=== PATIENT | male | born 1950 | race Caucasian/White ===

== ENCOUNTER 2018-11-24 17:23 | Inpatient (IN) ==
--- NOTE | 2018-11-24 17:53 | EKG ---
[address] [address] Measurements Intervals [place] Rate: 76 P: 24 AR: 188 QRS: 4 QRSD: 89 T: 44 QT: 392 QTc: 423 Interpretive Statements SINUS RHYTHM No previous ECG available for comparison Electronically Signed On 11-25-18 15:23:11 MDT by Aaron Carlos [email or web address]
[2018-11-24 18:05] LABS: BASOPHILS # (AUTO) 0.02 10*3/UL; BASOPHILS % (AUTO) 0.4 % (0-1); EOSINOPHILS # (AUTO) 0.39 10*3/UL; EOSINOPHILS % (AUTO) 8.4 % (0-8); Hematocrit [HCT] 26.6 % (42.0-52.0); Hemoglobin [HGB] 8.1 g/dL (14.0-18.0); LYMPHOCYTES # (AUTO) 1.33 10*3/uL; MEAN CORPUSCULAR HEMOGLOBIN 33.2 PG (27-31); MEAN CORPUSCULAR HGB CONC 30.5 g/dL (33-37); MEAN PLATELET VOLUME 8.9 FL (7.4-12.2); MONOCYTES # (AUTO) 0.86 10*3/UL (0.3-0.8); MONOCYTES % (AUTO) 18.5 % (5-15); NEUTROPHILS # (AUTO) 2.04 10*3/UL; NEUTROPHILS % (AUTO) 43.8 % (50-80); RED BLOOD COUNT 2.44 10^6/uL (4.70-6.10)
[2018-11-24] MEDS ORDERED: FUROSEMIDE 10 MG/1 ML - 4 ML IVP ONE (18:24)
[2018-11-24 18:29] LABS: PLATELET MORPHOLOGY COMMENT NORMAL MORPHOLOGY (NORM); RBC MORPHOLOGY COMMENT SEE COMMENTS (NORM); WBC MORPHOLOGY COMMENT NORMAL MORPHOLOGY (NORM)
[2018-11-24] MEDS ORDERED: fentaNYL Inj 100 MCG/2 ML VIAL IVP ONE ×2 (18:35→20:07)
[2018-11-24] MEDS ORDERED: ONDANSETRON 4 MG/2 ML VIAL IVP ONE (18:35)
--- NOTE | 2018-11-24 18:51 | DI ---
AP CHEST X-RAY, 11/24/2018 5:27 PM : Clinical History: Shortness of breath. Edema. Previous Exam: None at this facility. Soft Tissues: No acute soft tissue abnormality. Bones: Normal. Heart: Upper limits of normal to mild cardiomegaly. No reversal of flow to the upper lobes. The right heart border is not dilated. Lungs: No infiltrates. Effusion(s): None. Mediastinum: Vascular pedicle width is increased and the azygos vein is dilated. This can be seen wit h right heart failure. Nodules: No pulmonary nodules. Readin. No acute infiltrate or effusion. 2. Increased vascular pedicle with an dilatation of the azygos vein. Although the right heart is not dilated, these findings still can be seen with right heart failure and this should be correlated wit h clinical findings.
--- NOTE | 2018-11-24 18:56 | DI ---
AP PELVIS, 11/24/2018 5:31 PM : Clinical History: Fall. Previous Exam: None at this facility. Soft Tissues: Normal. The patient is morbidly obese. This detracts from the overall quality and sever hu limits the diagnostic quality of the exam with respect to small or fine detail structures. Hip Joints: Status post bilateral hip replacement. The prosthetic device articulates normally. SI Joints: Bilateral sacroiliitis. Symphysis Pubis: Normal. Bones: Normal bony pelvis. No fractures noted. There is osteoporosis. Additional Findings: Vascular calcifications are present in the pelvis in a pattern typical of patien ts with diabetes. Readin. Normal AP pelvis exam. Osteoporosis. Status post bilateral hip replacements. 2. If symptoms persist at the affected site, then follow-up films in are recommended in 7-10 days.
--- NOTE | 2018-11-24 19:04 | DI ---
LEFT FEMUR EXAM., 11/24/2018 5:29 PM: Clinical History: Injury. The patient fell. Comparison Study: None at this facility. Views: AP and lateral. Soft Tissues: No soft tissue swelling. There is marked muscle atrophy. Effusion: No joint effusion present. Joints: Cartilaginous surfaces intact. Bones: Status post total left hip replacement. The metallic shank in the femur extends to the distal third of the femur. 3 cerclage wires are present. On the AP projection, there is a lucency just infer ior to the second cerclage wire with periosteal new bone formation. This probably represents an old o r subacute fracture. There is severe osteoporosis. No definite loosening of the prosthesis is appreci ated. Readin. Status post total left hip replacement. The prosthetic device does not appear to be loose. 2. Inferior to the second cerclage wire laterally is an oblique lucency that may represent a fractur e. There is periosteal new bone formation in this may represent a subacute or old fracture. 3. Severe osteoporosis. Severe muscular atrophy.
[2018-11-24 19:09] LABS: BILIRUBIN,URINE NEGATIVE (NEG); CLARITY,URINE TURBID (CLEAR); COLOR,URINE YELLOW (Y); GLUCOSE, URINE (UA) NEGATIVE (NEG); OCCULT BLOOD,URINE LARGE (NEG); PROTEIN,URINE 100 mg/dl (NEG)
[2018-11-24 19:15] LABS: BACTERIA,URINE FEW; RBC,URINE 15-20 /hpf; SQUAMOUS EPITHELIAL CELL,UR RARE; URINE SAMPLE TYPE CATH SPECIMEN; WBC,URINE >100
[2018-11-24] MEDS ORDERED: HYDROcodone-APAP 5 MG -325 MG TABLET PO ONE (22:51)
--- NOTE | 2018-11-24 23:02 | DI ---
EXAM: CT Neck Without Intravenous Contrast CLINICAL HISTORY: ITS.REASON fall, ?left femur FX Physician Notes: Tech Comments: TECHNIQUE: Axial computed tomography images of the neck without intravenous contrast. COMPARISON: Left femur radiographs on 11/24/2018. Pelvis radiographs on 11/24/2018. FINDINGS: Bones/joints: Left hip arthroplasty. 3 cerclage wires noted along the proximal and mid left femur. Old fracture deformity of the left femur. No definite acute displaced fracture identified, but evaluation is limited by osteopenia and femoral hardware. Osteopenia. No left knee joint effusion. Soft tissues: Sequela of prior surgery in the soft tissues lateral to the proximal left femur. Soft tissue edema in the mid and distal left femur. Vascular calcifications. Fatty atrophy of the muscles. Other: Decompressed sigmoid colon. Mild diverticulosis. Nonspecific bladder wall thickening. IMPRESSION: 1. No definite acute displaced fracture identified, but evaluation is limited by osteopenia and femoral hardware. 2. Old fracture deformity of the left femur. Left hip arthroplasty. 3. Soft tissue edema.
[2018-11-24] MEDS ORDERED: cefTRIAXone Inj 2 GM in Sodium Chloride 0.9% 100 ML IV ONE (23:28)
[2018-11-24] MEDS ORDERED: LIDOCAINE HCL 2 % 10 ML JELLY URO-JECT TOPICAL PRN (23:37)
--- NOTE | 2018-11-25 | PDOC ---
HPI - History of Present Illness Date of Service: 11/25/18 Time of Service: 00:30 Chief Complaint: Patient fell last Tuesday complaining from pain in the left leg History of Present Illness: This is a 68 years old male with medical history significant for history of seizure disorder, history of paroxysmal A. fib, history of previous DVT before, history of gout, history of hypertension, history of chronic renal disease, history of previous GI bleed and blood transfusion who reside at the skilled nursing and apparently fell last Tuesday he said he was trying to use the wheelchair and apparently it folded and he fell his left leg was hurting today he had some blood tests and his potassium was high and was sent to the ER. His main complaint is pain in his left leg but otherwise denying other symptoms there's no nausea or vomiting. He did mention that there was the some dysuria. Apparently was recently started on trimethoprim. No chest pain, no shortness of breath. He came into the ER potassium was still elevated he was given some Lasix there is question initially maybe a fracture of the left femur however a CT of the extremity showed no evidence of fracture. Past Medical History Medical History: 1. History of seizure disorder. 2. History of paroxysmal A. fib. 3. History of DVT in the past. 4. History of chronic kidney disease stage III. 5. Chronic pain syndrome. 6. History of C. difficile in the past. 7. History of hypertension. 8. History of gout. 9. History of IVC filter Surgical History: 1. History of right knee surgery. 2. History of appendectomy. 3. History of shoulder surgery Past Social History: Used to smoke, doesn't drink, currently reside at the skilled nursing, he said he used to live in [place] he had surgery of rotator cuff cough on the right and he came in to have the rehabilitation over seems like he notes more like a permanent residence for him. He said he is a walker to walk. Tobacco Use: Former Smoker In the Past 12 Months, Have Used or Abuse Any of the Following Substance: None Medication / Allergies Home Medications: Home Medications Medication Instructions Recorded Confirmed acetaminophen 325 mg tablet 650 mg PO Q6H PRN 06/23/18 11/24/18 divalproex 250 mg tablet,delayed 750 mg PO QDAY tab 06/23/18 11/24/18 release escitalopram 20 mg tablet 20 mg PO QDAY tab 06/23/18 11/24/18 famotidine 20 mg tablet 20 mg PO BID tab 06/23/18 11/24/18 finasteride 5 mg tablet 5 mg PO QDAY 06/23/18 11/24/18 hydrocodone 5 mg-acetaminophen 325 1 tab PO Q6H PRN 06/23/18 11/24/18 mg tablet lidocaine 5 % topical cream 1 applic TOPICAL TID PRN 06/23/18 11/24/18 metoprolol tartrate 25 mg tablet 25 mg PO BID 06/23/18 11/24/18 olanzapine 10 mg tablet 10 mg PO QHS tab 06/23/18 11/24/18 pantoprazole 40 mg tablet,delayed 40 mg PO QDAY 06/23/18 11/24/18 release polyethylene glycol 3350 17 17 g PO QDAY PRN g 06/23/18 11/24/18 gram/dose oral powder prednisone 5 mg tablet 2.5 mg PO QDAY 06/23/18 11/24/18 rivaroxaban 20 mg tablet 20 mg PO QDAY 06/23/18 11/24/18 sennosides 8.6 mg-docusate sodium 2 tab PO QHS 06/23/18 11/24/18 50 mg tablet febuxostat 40 mg tablet 40 mg PO QDAY 08/14/18 11/24/18 gabapentin 300 mg capsule 300 mg PO BID cap 08/14/18 11/24/18 tamsulosin 0.4 mg capsule 0.4 mg PO QDAY 08/14/18 11/24/18 benztropine 1 mg tablet 1 mg PO QHS tab 09/25/18 11/24/18 ferrous gluconate 324 mg (38 mg 324 mg PO QDAY tab 09/25/18 11/24/18 iron) tablet nystatin 100,000 unit/gram topical 1 applic TOPICAL BID PRN 09/25/18 11/24/18 ointment tissue resp fact-shark ash oil 1 ea ID TID PRN g 09/25/18 11/24/18 rectal ointment Allergies/Adverse Reactions: Allergies Allergy/AdvReac Type Severity Reaction Status Date / Time acetaminophen [From Tylox] Allergy Mild ITCHING Verified 11/24/18 18:00 Opioids - Morphine Analogues Allergy Mild ITCHING Verified 11/24/18 18:00 oxycodone [From Tylox] Allergy Mild ITCHING Verified 11/24/18 18:00 Sulfa (Sulfonamide Allergy Mild ITCHING Verified 11/24/18 18:00 Antibiotics) hyoscyamine Allergy ITCHING Verified 11/24/18 18:00 [From Levsin with Phenobarbital] phenobarbital Allergy ITCHING Verified 11/24/18 18:00 [From Levsin with Phenobarbital] Phenytoin 1 Allergy Unknown ITCHING Uncoded 11/24/18 18:00 Review of Systems - Review of Systems All Systems: Reviewed & No Additional Complaints Except as Stated Exam - Vitals Vital Signs: Vital Signs Temperature 98 F Temperature Source Oral Pulse Rate [Pulse Oximeter] 76 Respiratory Rate 18 Blood Pressure [Left Arm] 139/66 Pulse Ox 94 Oxygen Delivery Method Room Air Height 6 ft Weight 253 lb - General General Appearance: No Acute Distress, Obese - Head Head Exam: Normal Inspection - Eye Eye Exam: POSITIVE: Normal Appearance - Neck Neck Exam: Normal Inspection - Respiratory Respiratory Exam: POSITIVE: Clear to Auscultation - Bilaterally - Cardiovascular Cardiovascular Exam: POSITIVE: RRR - GI/Abdominal GI/Abdominal Exam: POSITIVE: Normal Bowel Sounds, Non Tender, Non Distended, Soft, No Organomegaly - Rectal Rectal Exam: POSITIVE: Deferred - External Exam: POSITIVE: Deferred - Extremities Additional Extremities Exam Details: bilateral leg edema noted with oozing of fluid. also bruise in the left leg at the back of it - Neurological Neurological Exam: POSITIVE: Alert, Oriented x 3, CN II-XII Intact, No Facial Droop, Speech Intact / Clear - Psychiatric Psychiatric Exam: POSITIVE: Normal Affect Results - Labs CBC and BMP: 11/24/18 18:00 11/25/18 01:15 - EKG Data -: EKG Interpreted by Me Rate: Normal EKG Shows Normal: Sinus Rhythm - EKG Data EKG Interpretation: Other (EKG showed normal sinus rhythm with incomplete RBBB) - Imaging Status: Report Reviewed by Me (CT lower extremity 1. No definite acute displaced fracture identified, but evaluation is limited by osteopenia and femoral hardware. 2. Old fracture deformity of the left femur. Left hip arthroplasty. 3. Soft tissue edema. Chest Xray 1. No acute infiltrate or effusion. 2. Increased vascular pedicle with an dilatation of the azygos vein. Although the right heart is not dilated, these findings still can be seen with right heart failure and this should be correlated with clinical findings.) Assessment and Plan - Patient Problems (1) UTI (urinary tract infection) Current Visit: Yes Status: Acute Comment: He was started on Rocephin will continue the Rocephin and wait culture result. Code(s): N39.0 - Urinary tract infection, site not specified (2) Hyperkalemia Current Visit: Yes Status: Acute Comment: I think it's probably secondary to the trimethoprim so we'll discontinue that, he was given Lasix will continue Lasix we'll check his potassium again. There is no EKG changes present. Code(s): E87.5 - Hyperkalemia (3) Bilateral leg edema Current Visit: Yes Status: Acute Comment: Edema noted in both legs the Lasix I think will help in addition to lowering potassium will help with the swelling in his legs. He is not on diuretic according to him. Code(s): R60.0 - Localized edema (4) Paroxysmal A-fib Current Visit: Yes Status: Acute Comment: he Is on metoprolol and Xarelto continue Code(s): I48.0 - Paroxysmal atrial fibrillation (5) History of seizure disorder Current Visit: Yes Status: Acute Comment: Continue same medications Code(s): Z86.69 - Personal history of other diseases of the nervous system and sense organs (6) Anemia Current Visit: Yes Status: Acute Comment: He has a history of anemia before and he said he had blood transfusion last year, part of the anemia is secondary to chronic kidney disease in addition there is some bruising noted to the leg will recheck his counts then consider blood transfusion. He did say that he feels weak. Code(s): D64.9 - Anemia, unspecified (7) History of depression Current Visit: Yes Status: Acute Comment: Same medication Code(s): Z86.59 - Personal history of other mental and behavioral disorders
[2018-11-25] MEDS ORDERED: LIDOCAINE HCL 2 % 10 ML JELLY URO-JECT TOPICAL PRN ×2 (00:31→10:01)
[2018-11-25] MEDS ORDERED: HYDROcodone-APAP 5 MG -325 MG TABLET PO PRN (00:38)
[2018-11-25] MEDS ORDERED: LIDOCAINE TOPICAL PRN (00:38)
[2018-11-25] MEDS ORDERED: POLYETHYLENE GLYCOL 3350 238 GM POWDER PO PRN (00:38)
[2018-11-25] MEDS ORDERED: CALCIUM CARBONATE 500 MG (TUMS) CHEWABLE TABLET PO PRN (00:52)
[2018-11-25] MEDS ORDERED: LIDOCAINE W/ SODIUM BICARB 0.5 ML SYR SUBD PRN (00:52)
[2018-11-25] MEDS ORDERED: ONDANSETRON 4 MG/2 ML VIAL IVP PRN (00:52)
[2018-11-25] MEDS ORDERED: ACETAMINOPHEN 325 MG TABLET PO PRN (00:52)
[2018-11-25] MEDS: DIVALPROEX SODIUM 250 MG TABLET PO SCH ×2 (01:10→09:00)
[2018-11-25] MEDS: fentaNYL Inj 100 MCG/2 ML VIAL IVP PRN ×2 (01:11→05:10)
[2018-11-25] MEDS: BENZTROPINE 1 MG TABLET PO SCH ×2 (01:11→20:47)
[2018-11-25] MEDS: Senna/Docusate Tab 1 TAB TAB PO SCH ×2 (01:43→20:47)
[2018-11-25] MEDS: OLANZapine Tab 5 MG TAB PO SCH ×2 (01:43→20:47)
[2018-11-25 01:48] LABS: BUN/CREATININE RATIO 20.86 (6-20)
--- NOTE | 2018-11-25 05:57 | PDOC ---
General Adult HPI - General Chief Complaint: General Medical Stated Complaint: BRUISING TO LEFT LEG Date Seen by Provider: 11/24/18 Time Seen by Provider: 17:55 Source: POSITIVE: Patient, EMS, shelter records Exam Limitations: POSITIVE: No limitations Nurse's Notes Reviewed & Considered: Yes EMS Report Reviewed & Considered: Verbal - History of Present Illness Initial Comment: The patient is a 68-year-old male who presents to the emergency department by ambulance from the [facility] with concern about increased bruising to his left leg as well as elevated potassium. The patient has a history of multiple medical problems including congestive heart failure, history of atrial fibrillation and history of blood clots. He is currently anticoagulated with Xarelto. He states that approximately a week ago he got twisted up in his wheelchair and fell. He did injure his left leg. He reports continued pain in the left hip and leg region. Nursing staff at the [facility] noticed that he had some increased bruising extending down towards the back of his left knee. In addition the patient had labs drawn today which showed an elevated potassium 6. The patient was subsequently transferred here to the emergency department for further evaluation. The patient denies any current chest pain, numbness or weakness in his arms or legs. He does have significant swelling to both lower legs which has apparently been worse over the past 4 days. He reports they have been doing compression wraps to try to help with the swelling. Have you received a tetanus shot in the past 10 years?: Unknown - Patient Home Medications Home Medications: Home Medications acetaminophen 325 mg tablet 650 mg PO Q6H PRN 06/23/18 divalproex 250 mg tablet,delayed release 750 mg PO QDAY tab 06/23/18 escitalopram 20 mg tablet 20 mg PO QDAY tab 06/23/18 famotidine 20 mg tablet 20 mg PO BID tab 06/23/18 finasteride 5 mg tablet 5 mg PO QDAY 06/23/18 hydrocodone 5 mg-acetaminophen 325 mg tablet 1 tab PO Q6H PRN 06/23/18 lidocaine 5 % topical cream 1 applic TOPICAL TID PRN 06/23/18 metoprolol tartrate 25 mg tablet 25 mg PO BID 06/23/18 olanzapine 10 mg tablet 10 mg PO QHS tab 06/23/18 pantoprazole 40 mg tablet,delayed release 40 mg PO QDAY 06/23/18 polyethylene glycol 3350 17 gram/dose oral powder 17 g PO QDAY PRN g 06/23/18 prednisone 5 mg tablet 2.5 mg PO QDAY 06/23/18 rivaroxaban 20 mg tablet 20 mg PO QDAY 06/23/18 sennosides 8.6 mg-docusate sodium 50 mg tablet 2 tab PO QHS 06/23/18 febuxostat 40 mg tablet 40 mg PO QDAY 08/14/18 gabapentin 300 mg capsule 300 mg PO BID cap 08/14/18 tamsulosin 0.4 mg capsule 0.4 mg PO QDAY 08/14/18 benztropine 1 mg tablet 1 mg PO QHS tab 09/25/18 ferrous gluconate 324 mg (38 mg iron) tablet 324 mg PO QDAY tab 09/25/18 nystatin 100,000 unit/gram topical ointment 1 applic TOPICAL BID PRN 09/25/18 tissue resp fact-shark ash oil rectal ointment 1 ea NM TID PRN g 09/25/18 - Patient Allergies Allergies/Adverse Reactions: Allergies Allergy/AdvReac Type Severity Reaction Status Date / Time acetaminophen [From Tylox] Allergy Mild ITCHING Verified 11/24/18 18:00 Opioids - Morphine Analogues Allergy Mild ITCHING Verified 11/24/18 18:00 oxycodone [From Tylox] Allergy Mild ITCHING Verified 11/24/18 18:00 Sulfa (Sulfonamide Allergy Mild ITCHING Verified 11/24/18 18:00 Antibiotics) hyoscyamine Allergy ITCHING Verified 11/24/18 18:00 [From Levsin with Phenobarbital] phenobarbital Allergy ITCHING Verified 11/24/18 18:00 [From Levsin with Phenobarbital] Phenytoin 1 Allergy Unknown ITCHING Uncoded 11/24/18 18:00 Past Medical History - heen HEENT History: Denies History Cardiovascular History: Hypertension, CHF, Arrhythmia, DVTs Respiratory History: Shortness of Breath Gastrointestinal History: Denies History Genitourinary History: Recurrent UTI Endocrine History: Type 2 Diabetes (oral) Musculoskeletal History: Muscle Weakness, Limited ROM Neurological History: Seizures Blood Disorders: Anemia Additional Blood Disorders History: HX OF BLOOD CLOTS Psychiatric History: Depression History of Sexually Transmitted Diseases: No Male Reproductive History: Denies History Cancer History: Denies History In Past Year Been Physically Harmed or Verbally Threatened: No History of MDRO: No History of Other Communicable Diseases: No Tobacco Use: Former Smoker In the Past 12 Months, Have Used or Abuse Any Substance: None Previous Surgical History: Yes Type / Date of Surgery: RIGHT ROTATOR CUFF, BILATERAL HIP Significant Family History: No pertinent family hx Past Medical History Reviewed: Reviewed - No Changes ROS - Limitations ROS Limitations: No Limitations Constitution: DENIES: Fever Cardiovascular: DENIES: Chest Pain Respiratory: REPORTS: Denies Resp Symptoms Neurological: DENIES: Numbness, Weakness Gastrointestinal: REPORTS: Denies GI Symptoms Musculoskeletal: REPORTS: Lower Extremity Swelling Genitourinary: REPORTS: Other (Patient has intermittent incontinence and did have a urinary tract infection a month ago) Eyes: REPORTS: Denies Symptoms ENT: REPORTS: Denies Symptoms General Adult Exam - General Appearance General Appearance: POSITIVE: Alert, Cooperative, No Acute Distress - HEENT HEENT: POSITIVE: Head Inspection Nml, Eyes Inspection Nml, Ears Inspection Nml, Pharynx Inspect. Nml, Dry Mucous Membranes - Neck Neck: POSITIVE: Normal Inspection. NEGATIVE: Lymphadenopathy - Respiratory Respiratory: POSITIVE: No Respiratory Distress, Breath Sounds Normal (Diminished breath sounds bilaterally) - Cardiovascular Cardiovascular: POSITIVE: Regular Rate & Rhythm, No Murmur - Abdomen Abdomen: Soft: (All Quadrants), Denies Tenderness: (All Quadrants) - Skin Skin: POSITIVE: Normal Color, No Rash - Extremities Additional Extremities Details: The patient does have marked edema in the lower extremities bilaterally, he does have an area of bruising that extends from the posterior aspect of the mid thigh on the left down to the level of the knee. He does have limited range of motion of the left leg secondary to pain in the hip region. 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 X-ray of the pelvis shows no visible fractures per radiologist. X-ray of the left femur shows hardware from previous surgery, he does have a translucency adjacent to the hardware of unknown significance and acuity per radiologist. Subsequent CT of the left femur showed no visible fracture only chronic findings per radiologist. Lab Results Reviewed by Me: Yes Lab Results:: Laboratory Results 11/24/18 11/24/18 11/24/18 18:00 18:00 18:00 WBC 4.66 L RBC 2.44 L Hgb 8.1 L Hct 26.6 L MCV 109.0 H MCH 33.2 H MCHC 30.5 L RDW Std Deviation 60.3 H RDW Coeff of [place] 15.9 H Plt Count 225 MPV 8.9 Immature Gran % (Auto) 0.4 Neut % (Auto) 43.8 L Lymph % (Auto) 28.5 [place] % (Auto) 18.5 H Eos % (Auto) 8.4 H Baso % (Auto) 0.4 Immature Gran # (Auto) 0.02 Neut # (Auto) 2.04 Lymph # (Auto) 1.33 [place] # (Auto) 0.86 H Eos # (Auto) 0.39 Baso # (Auto) 0.02 WBC Morphology Comment Normal morphology Plt Morphology Comment Normal morphology RBC Morph Comment See comments PT INR APTT D-Dimer Potassium Magnesium 2.0 Total Creatine Kinase 58 Troponin I < 0.012 C-Reactive Protein 3.1 H NT-Pro-B Natriuret Pep 843 H Ur Collection Type Urine Color Urine Clarity Urine pH Ur Specific [place] Urine Protein Urine Glucose (UA) Urine Ketones Urine Occult Blood Urine Nitrate Urine Bilirubin Urine Urobilinogen Ur Leukocyte Esterase Urine RBC Urine WBC Ur Squamous Epith Cells Ur Renal Epithelial Cell Urine Crystals Urine Bacteria Urine Casts Urine Mucus Urine Trichomonas Urine Yeast Ur Culture Indicated? 11/24/18 11/24/18 11/24/18 18:00 18:00 18:00 WBC RBC Hgb Hct MCV MCH MCHC RDW Std Deviation RDW Coeff of [place] Plt Count MPV Immature Gran % (Auto) Neut % (Auto) Lymph % (Auto) [place] % (Auto) Eos % (Auto) Baso % (Auto) Immature Gran # (Auto) Neut # (Auto) Lymph # (Auto) [place] # (Auto) Eos # (Auto) Baso # (Auto) WBC Morphology Comment Plt Morphology Comment RBC Morph Comment PT 15.0 H INR 1.30 APTT 30.7 D-Dimer 416 Potassium 6.2 H* Magnesium Total Creatine Kinase Troponin I C-Reactive Protein NT-Pro-B Natriuret Pep Ur Collection Type Urine Color Urine Clarity Urine pH Ur Specific [place] Urine Protein Urine Glucose (UA) Urine Ketones Urine Occult Blood Urine Nitrate Urine Bilirubin Urine Urobilinogen Ur Leukocyte Esterase Urine RBC Urine WBC Ur Squamous Epith Cells Ur Renal Epithelial Cell Urine Crystals Urine Bacteria Urine Casts Urine Mucus Urine Trichomonas Urine Yeast Ur Culture Indicated? 11/24/18 19:00 WBC RBC Hgb Hct MCV MCH MCHC RDW Std Deviation RDW Coeff of [place] Plt Count MPV Immature Gran % (Auto) Neut % (Auto) Lymph % (Auto) [place] % (Auto) Eos % (Auto) Baso % (Auto) Immature Gran # (Auto) Neut # (Auto) Lymph # (Auto) [place] # (Auto) Eos # (Auto) Baso # (Auto) WBC Morphology Comment Plt Morphology Comment RBC Morph Comment PT INR APTT D-Dimer Potassium Magnesium Total Creatine Kinase Troponin I C-Reactive Protein NT-Pro-B Natriuret Pep Ur Collection Type Cath specimen Urine Color Yellow Urine Clarity Turbid A Urine pH 7.0 Ur Specific [place] 1.015 Urine Protein 100 A Urine Glucose (UA) Negative Urine Ketones Negative Urine Occult Blood Large H Urine Nitrate Negative Urine Bilirubin Negative Urine Urobilinogen 1.0 Ur Leukocyte Esterase Large Urine RBC 15-20 Urine WBC >100 H Ur Squamous Epith Cells Rare Ur Renal Epithelial Cell None Urine Crystals None Urine Bacteria Few Urine Casts None Urine Mucus None Urine Trichomonas None Urine Yeast None Ur Culture Indicated? Culture set CBC and BMP: 11/24/18 18:00 11/25/18 01:15 EKG Interpretation:: POSITIVE: Normal Sinus Rhythm, Normal Rate, Normal QRS, Normal ST/T - Patient's Progress MDM / ED Course: On arrival, EKG was performed which showed normal sinus rhythm at this time with no acute ST segment changes or T-wave changes. An IV was established. Blood work from earlier today was reviewed which does show a creatinine of 2.2 and potassium of 6.0. His baseline creatinine has been between 2 and 2.2 recently. A repeat potassium was 6.2. Other blood work reveals a white count of 4 and a hemoglobin of 8.1. He is normally chronically anemic although he has had a drop in his hemoglobin from the nines down to 8.1. His troponin is normal, BNP is elevated at 843. Urinalysis shows greater than 100 WBCs and culture is set. Chest x-ray shows right-sided heart failure with no other acute findings per radiologist. X-ray of the pelvis shows no visible fracture. X-ray of the left femur showed hardware from previous surgery and possible translucency adjacent to the hardware of unknown acuity per radiologist. The patient did receive Lasix 40 mg IV and did have a fair amount of diuresis here in the emergency department. These findings were discussed with the patient as well as Dr. Deshpande. Because of the concern about possible fracture or translucency on the femur x-ray, Dr. Sanz was contacted. He recommended CT scan of the lower extremity. This was completed in eventually showed that there was no obvious fracture in the left femur. Dr. Sanz recommended expectant management. Currently the patient is anemic with a hemoglobin of 8.1, he has elevated potas sium with history of chronic renal insufficiency and marked edema in his legs. He also has evidence of a urinary tract infection. The patient will be admitted to the hospitalist service for further care. A Purcell catheter was placed and he was started on Rocephin 2 g IV for treatment of the urinary tract infection. - Consult Counseled: POSITIVE: Patient, RE: Lab Results, RE: Radiology Results, RE: DX Patient Care Time - Estimated PCT Patient Care Time (In Minutes): 55 Vital Signs - VS Reviewed Vital Signs Reviewed: Yes Discharge Clinical Impression: UTI (urinary tract infection), Hyperkalemia, Bilateral leg edema, Anemia, Traumatic ecchymosis of left lower leg Discharge Disposition: Admit to Inpatient Condition: Fair Date Decision to Admit to Inpatient: 11/24/18 Time Decision to Admit to Inpatient: 23:15
[2018-11-25] MEDS: PANTOPRAZOLE 40 MG TABLET PO SCH (06:57)
[2018-11-25] MEDS: FUROSEMIDE 10 MG/1 ML - 4 ML IVP SCH ×2 (06:57→14:00)
[2018-11-25 08:53] LABS: BASOPHILS # (AUTO) 0.02 10*3/UL; BASOPHILS % (AUTO) 0.4 % (0-1); EOSINOPHILS # (AUTO) 0.39 10*3/UL; EOSINOPHILS % (AUTO) 7.2 % (0-8); Hematocrit [HCT] 27.3 % (42.0-52.0); Hemoglobin [HGB] 8.2 g/dL (14.0-18.0); LYMPHOCYTES # (AUTO) 1.46 10*3/uL; MEAN CORPUSCULAR HEMOGLOBIN 33.1 PG (27-31); MEAN CORPUSCULAR VOLUME 110.1 FL (80-90); MEAN PLATELET VOLUME 8.8 FL (7.4-12.2); MONOCYTES % (AUTO) 16.6 % (5-15); NEUTROPHILS # (AUTO) 2.63 10*3/UL; NEUTROPHILS % (AUTO) 48.5 % (50-80); RED BLOOD COUNT 2.48 10^6/uL (4.70-6.10)
[2018-11-25 08:54] LABS: PLATELET MORPHOLOGY COMMENT NORMAL MORPHOLOGY (NORM); RBC MORPHOLOGY COMMENT NORMAL MORPHOLOGY (NORM); WBC MORPHOLOGY COMMENT NORMAL MORPHOLOGY (NORM)
[2018-11-25] MEDS: GABAPENTIN 300 MG CAPSULE PO SCH ×2 (09:00→20:47)
[2018-11-25] MEDS: FAMOTIDINE 20 MG TABLET PO SCH ×2 (09:00→20:47)
[2018-11-25] MEDS: FINASTERIDE 5 MG TABLET PO SCH (09:00)
[2018-11-25] MEDS: Metoprolol TARTRATE Tab 25 MG TAB PO SCH ×2 (09:00→20:47)
[2018-11-25] MEDS: TAMSULOSIN 0.4 MG CAPSULE PO SCH (09:03)
[2018-11-25] MEDS ORDERED: SODIUM POLYSTYRENE SULFONATE 15 GM/60 ML PO ONE (10:03)
--- NOTE | 2018-11-25 14:27 | PDOC(PROG) ---
Interval History: Patient received fentanyl last night apparently this was a little too much for him he is aware arousable but sleepy. We are obtaining good urine output we will recheck labs this afternoon for his potassium levels. Objective : Data - Labs CBC and BMP: 11/25/18 08:35 11/25/18 01:15 Objective : Exam - General General Appearance: Cooperative - Respiratory Respiratory Exam: Clear to Auscultation - Bilaterally, Breathing Non Labored, Normal To Percussion, Normal to Percussion and Palpation - Cardiovascular Cardiovascular Exam: RRR, No Murmur, No Clicks, No Gallops, No Rubs, PMI Non- Displaced - GI/Abdominal GI/Abdominal Exam: Normal Bowel Sounds, Non Tender, Non Distended, Soft, No Mas ses, No Hepatomegaly, No Splenomegaly, No Organomegaly Assessment and Plan - Patient Problems (1) UTI (urinary tract infection) Current Visit: Yes Status: Acute Comment: Continue IV antibiotics Code(s): N39.0 - Urinary tract infection, site not specified (2) Hyperkalemia Current Visit: Yes Status: Acute Comment: Lasix and Kayexalate was given Code(s): E87.5 - Hyperkalemia (3) Bilateral leg edema Current Visit: Yes Status: Acute Comment: Continue Lasix Code(s): R60.0 - Localized edema (4) Paroxysmal A-fib Current Visit: Yes Status: Acute Comment: On the anticoagulation Code(s): I48.0 - Paroxysmal atrial fibrillation (5) History of seizure disorder Current Visit: Yes Status: Acute Code(s): Z86.69 - Personal history of other diseases of the nervous system and sense organs (6) Anemia Current Visit: Yes Status: Acute Comment: No family members around to discuss maybe stopping the anticoagulation Code(s): D64.9 - Anemia, unspecified (7) History of depression Current Visit: Yes Status: Acute Code(s): Z86.59 - Personal history of other mental and behavioral disorders
[2018-11-25] MEDS: HYDROcodone-APAP 5 MG -325 MG TABLET PO PRN ×3 (15:09→23:18)
[2018-11-25] MEDS ORDERED: Rivaroxaban Tab 10 MG TAB PO SCH (17:00)
[2018-11-25 20:03] LABS: BUN/CREATININE RATIO 20.9 (6-20); SERUM ALBUMIN 3.4 g/dL (3.5-4.8)
[2018-11-25] MEDS ORDERED: cefTRIAXone Inj 2 GM in Sodium Chloride 0.9% 100 ML IV SCH (23:00)
[2018-11-26] MEDS: PANTOPRAZOLE 40 MG TABLET PO SCH (07:05)
[2018-11-26] MEDS: FUROSEMIDE 10 MG/1 ML - 4 ML IVP SCH (07:05)
[2018-11-26 09:00] LABS: BUN/CREATININE RATIO 20.95 (6-20); SERUM ALBUMIN 3.4 g/dL (3.5-4.8)
[2018-11-26] MEDS ORDERED: FEBUXOSTAT 40 MG PO SCH (09:00)
[2018-11-26] MEDS ORDERED: GABAPENTIN 100 MG CAPSULE PO SCH (09:00)
[2018-11-26] MEDS ORDERED: ESCITALOPRAM 10 MG TABLET PO SCH (09:00)
[2018-11-26 09:21] LABS: BASOPHILS # (AUTO) 0.02 10*3/UL; BASOPHILS % (AUTO) 0.3 % (0-1); EOSINOPHILS % (AUTO) 8.1 % (0-8); Hemoglobin [HGB] 9.1 g/dL (14.0-18.0); LYMPHOCYTES # (AUTO) 1.46 10*3/uL; MEAN CORPUSCULAR HEMOGLOBIN 33.3 PG (27-31); MEAN CORPUSCULAR HGB CONC 30.3 g/dL (33-37); MEAN CORPUSCULAR VOLUME 109.9 FL (80-90); MEAN PLATELET VOLUME 8.6 FL (7.4-12.2); MONOCYTES # (AUTO) 0.85 10*3/UL (0.3-0.8); MONOCYTES % (AUTO) 11.4 % (5-15); NEUTROPHILS # (AUTO) 4.49 10*3/UL; NEUTROPHILS % (AUTO) 60.3 % (50-80); RED BLOOD COUNT 2.73 10^6/uL (4.70-6.10)
[2018-11-26 09:22] LABS: PLATELET MORPHOLOGY COMMENT NORMAL MORPHOLOGY (NORM); RBC MORPHOLOGY COMMENT NORMAL MORPHOLOGY (NORM); WBC MORPHOLOGY COMMENT NORMAL MORPHOLOGY (NORM)
[2018-11-26] MEDS: predniSONE 5 MG TABLET PO SCH ×2 (09:26→09:53)
[2018-11-26] MEDS: DIVALPROEX SODIUM 250 MG TABLET PO SCH (09:26)
[2018-11-26] MEDS: HYDROcodone-APAP 5 MG -325 MG TABLET PO PRN (09:28)
[2018-11-26] MEDS: FINASTERIDE 5 MG TABLET PO SCH (09:29)
[2018-11-26] MEDS: Metoprolol TARTRATE Tab 25 MG TAB PO SCH (09:29)
[2018-11-26] MEDS: TAMSULOSIN 0.4 MG CAPSULE PO SCH (09:29)
[2018-11-26] MEDS: FAMOTIDINE 20 MG TABLET PO SCH (09:29)
[2018-11-26] MEDS ORDERED: Amoxicill/Clav 875/125mg Tab 1 TAB TAB PO SCH (10:15)
--- NOTE | 2018-11-26 10:51 | DCSUMMARY ---
Hospitalization Summary Hospital Course: Final Discharge Diagnosis: Current Visit Problems Problem Status Onset Code UTI (urinary tract infection) Acute N39.0 Hyperkalemia Acute E87.5 Bilateral leg edema Acute R60.0 Paroxysmal A-fib Acute I48.0 History of seizure disorder Acute Z86.69 Anemia Acute D64.9 History of depression Acute Z86.59 Traumatic ecchymosis of left lower leg Acute S80.12XA Diagnostic Data, Laboratory Data, and Procedures of Signifigance: CBC and BMP 11/26/18 09:10 11/26/18 08:30 History and Physical pertinent to Admission: Past Medical History Medical History: 1. History of seizure disorder. 2. History of paroxysmal A. fib. 3. History of DVT in the past. 4. History of chronic kidney disease stage III. 5. Chronic pain syndrome. 6. History of C. difficile in the past. 7. History of hypertension. 8. History of gout. 9. History of IVC filter Surgical History: 1. History of right knee surgery. 2. History of appendectomy. 3. History of shoulder surgery Past Social History: Used to smoke, doesn't drink, currently reside at the [facility], he said he used to live in [place] he had surgery of rotator cuff cough on the right and he came in to have the rehabilitation over seems like he notes more like a permanent residence for him. He said he is a walker to walk. Tobacco Use: Former Smoker Course of Hospitalization: Is a very nice 68-year-old gentleman with past medical history significant for paroxysmal A. fib, most likely congestive heart failure, hypertension, chronic renal disease and history of previous GI bleeds and is a resident of the [facility] apparently fell last Tuesday he was hurting today was sent to the ER. CT scan shows no fracture but he was found to have hyperkalemia and some fluid overload. He was admitted to the hospital treated for UTI with Rocephin 2 g daily. He was also diuresed with Lasix IV about 5-1/2 L. And his hyperkalemia was treated to back down to normal values to 5.1 most likely his hyperkalemia was due to Bactrim for which she was given for his UTI. Patient is in stable condition at present point he feels much better has no complaints. I did add Lasix 20 mg by mouth twice a day to his regimen. I wanted to take the Purcell out but the patient explicitly requested to leave it in at least for another 2 or 3 days and then to take it out since he is very incontinent and does not like to lay in his urine. I said that was fine since it was his request. He will be treated with Augmentin for 3 more days for his UTI as well. He has chronic renal failure. This is mildly improved since in the hospital. We will give report to his primary care physician and may be getting an echo as an outpati ent. On the date of discharge, the patient was examined: Gen.: [No acute distress, alert, nontoxic] Heart: [Regular rate and rhythm, no murmurs, clicks, gallops, or rubs] Lungs: [Clear to auscultation bilaterally, breathing is nonlabored] Abdomen/GI: [Normal tones on auscultation, soft, nontender, nondistended] Musculoskeletal/extremities: [No clubbing, cyanosis, or edema] Vitals reviewed and are listed below Vital Signs (24 hrs) 11/25/18 11:53 11/25/18 15:00 11/25/18 16:20 Temperature 99.8 F H 98.9 F Pulse Rate 75 Pulse Rate [Pulse Oximeter] 78 88 Respiratory Rate 20 20 Blood Pressure [Left Arm] 113/47 120/50 Blood Pressure [Right Arm] Blood Pressure [Right Radial Artery] Pulse Ox 94 94 11/25/18 19:00 11/25/18 19:03 11/25/18 23:00 Temperature 98.6 F Pulse Rate 80 71 Pulse Rate [Pulse Oximeter] Respiratory Rate 24 Blood Pressure [Left Arm] Blood Pressure [Right Arm] 104/48 Blood Pressure [Right Radial Artery] Pulse Ox 93 11/26/18 00:13 11/26/18 03:00 11/26/18 04:53 Temperature 98.7 F 98.4 F Pulse Rate 67 Pulse Rate [Pulse Oximeter] 78 80 Respiratory Rate 20 20 Blood Pressure [Left Arm] 110/59 Blood Pressure [Right Arm] 151/63 Blood Pressure [Right Radial Artery] Pulse Ox 95 97 11/26/18 06:33 11/26/18 07:00 11/26/18 07:20 Temperature 97.3 F 97.3 F Pulse Rate 68 Pulse Rate [Pulse Oximeter] 75 75 Respiratory Rate 22 22 Blood Pressure [Left Arm] 110/59 126/82 Blood Pressure [Right Arm] 151/63 Blood Pressure [Right Radial Artery] 129/38 129/38 Pulse Ox 93 93 Assessment and Plan: 1. As per discharge assessments above 2. Disposition: [facility] 3. Condition on discharge, stable and improved. 4. Diet: regular diet 5. Activities: resume normal activities 6. Follow-Up: 1. [PCP] 2. 7. Medications at the Time of Discharge: Home Medications Medication Instructions Recorded Confirmed acetaminophen 325 mg tablet 650 mg PO Q6H PRN 06/23/18 11/24/18 divalproex 250 mg tablet,delayed 750 mg PO QDAY tab 06/23/18 11/24/18 release escitalopram 20 mg tablet 20 mg PO QDAY tab 06/23/18 11/24/18 famotidine 20 mg tablet 20 mg PO BID tab 06/23/18 11/24/18 finasteride 5 mg tablet 5 mg PO QDAY 06/23/18 11/24/18 hydrocodone 5 mg-acetaminophen 325 1 tab PO Q6H PRN 06/23/18 11/24/18 mg tablet lidocaine 5 % topical cream 1 applic TOPICAL TID PRN 06/23/18 11/24/18 metoprolol tartrate 25 mg tablet 25 mg PO BID 06/23/18 11/24/18 olanzapine 10 mg tablet 10 mg PO QHS tab 06/23/18 11/24/18 pantoprazole 40 mg tablet,delayed 40 mg PO QDAY 06/23/18 11/24/18 release polyethylene glycol 3350 17 17 g PO QDAY PRN g 06/23/18 11/24/18 gram/dose oral powder prednisone 5 mg tablet 2.5 mg PO QDAY 06/23/18 11/24/18 rivaroxaban 20 mg tablet 20 mg PO QDAY 06/23/18 11/24/18 sennosides 8.6 mg-docusate sodium 2 tab PO QHS 06/23/18 11/24/18 50 mg tablet febuxostat 40 mg tablet 40 mg PO QDAY 08/14/18 11/24/18 gabapentin 300 mg capsule 300 mg PO BID cap 08/14/18 11/24/18 tamsulosin 0.4 mg capsule 0.4 mg PO QDAY 08/14/18 11/24/18 benztropine 1 mg tablet 1 mg PO QHS tab 09/25/18 11/24/18 ferrous gluconate 324 mg (38 mg 324 mg PO QDAY tab 09/25/18 11/24/18 iron) tablet nystatin 100,000 unit/gram topical 1 applic TOPICAL BID PRN 09/25/18 11/24/18 ointment tissue resp fact-shark ash oil 1 ea [place] TID PRN g 09/25/18 11/24/18 rectal ointment Amoxicill/Clav 875/125mg 1 tab PO BID tab 11/26/18 [Augmentin 875/125mg] Furosemide [Lasix] 20 mg PO BID #30 tab 11/26/18 8. Time, care, counseling and coordination of care for this discharge is greater than 30 minutes. Exam - Vitals Vital Signs: Vital Signs Temperature 97.3 F Temperature Source Temporal Artery Scan Pulse Rate [Pulse Oximeter] 75 Pulse Rate 68 Respiratory Rate 22 Blood Pressure [Right Radial 129/38 Artery] Blood Pressure [Right Arm] 151/63 Blood Pressure [Left Arm] 126/82 Blood Pressure 114/51 Pulse Ox 93 Oxygen Flow Rate 2 Oxygen Delivery Method Room Air Height 6 ft Weight 253 lb Patient Problems - Patient Problem List (1) UTI (urinary tract infection) Current Visit: Yes Status: Acute Code(s): N39.0 - Urinary tract infection, site not specified Category: Medical (2) Hyperkalemia Current Visit: Yes Status: Acute Code(s): E87.5 - Hyperkalemia Category: Medical (3) Bilateral leg edema Current Visit: Yes Status: Acute Code(s): R60.0 - Localized edema Category: Medical (4) Paroxysmal A-fib Current Visit: Yes Status: Acute Code(s): I48.0 - Paroxysmal atrial fibrillation Category: Medical (5) History of seizure disorder Current Visit: Yes Status: Acute Code(s): Z86.69 - Personal history of other diseases of the nervous system and sense organs Category: Medical (6) Anemia Current Visit: Yes Status: Acute Code(s): D64.9 - Anemia, unspecified Category: Medical (7) History of depression Current Visit: Yes Status: Acute Code(s): Z86.59 - Personal history of other mental and behavioral disorders Category: Medical
[2018-11-26 11:15] VITALS: BP 130/40; RESP 17; TEMP 97; O2SAT 91
== END 2018-11-26 11:51 | DRG 690 ==
LOC: ER 17:23 → MED/SURG 23:28
PROVIDERS: ADMIT Internal Medicine; ATTEND Internal Medicine

== ENCOUNTER 2018-12-22 18:57 | Inpatient (IN) ==
[2018-12-22] MEDS ORDERED: PANTOPRAZOLE IV 40 MG VIAL IVP ONE (19:09)
[2018-12-22] MEDS ORDERED: ONDANSETRON 4 MG/2 ML VIAL IVP ONE (19:09)
[2018-12-22] MEDS ORDERED: fentaNYL Inj 100 MCG/2 ML VIAL IVP ONE ×2 (19:09→21:54)
[2018-12-22] MEDS ORDERED: Sodium Chloride 0.9% 1,000 ML PRIMARY IV ONE (19:09)
[2018-12-22] MEDS ORDERED: Acetaminophen 1000mg Inj 1,000 MG/100 ML VIAL IV PRN (19:12)
--- NOTE | 2018-12-22 19:52 | PDOC ---
Abdomen/Flank HPI - General Chief Complaint: Abdomen Pain Stated Complaint: RIGHT ABD. PAIN WITH FEVER, NAUSEA Date Seen by Provider: 12/22/18 Time Seen by Provider: 19:05 Source: POSITIVE: Patient, EMS, halfway records Exam Limitations: POSITIVE: No limitations Nurse's Notes Reviewed & Considered: Yes EMS Report Reviewed & Considered: Verbal - History of Present Illness Initial Comments: The patient is a 68-year-old male who presents to the emergency department with severe upper abdominal pain. He states that his current pain started sometime just after eating dinner this evening. [facility] Staff there checked his vital signs and at one point noted that his blood pressure was low. He also was noted to have a fever with temperature of 101. He was subsequently transported here to the emergency department. The patient appears to be uncomfortable on arrival. He is describing severe upper abdominal pain. He has not had any associated vomiting or recent diarrhea. He does have an indwelling Purcell catheter. The patient is anticoagulated with Xarelto for atrial fibrillation and history of DVT. - Patient Home Medications Home Medications: Home Medications acetaminophen 325 mg tablet 650 mg PO Q6H PRN 06/23/18 divalproex 250 mg tablet,delayed release 750 mg PO QDAY tab 06/23/18 escitalopram 20 mg tablet 20 mg PO QDAY tab 06/23/18 famotidine 20 mg tablet 20 mg PO BID tab 06/23/18 finasteride 5 mg tablet 5 mg PO QDAY 06/23/18 hydrocodone 5 mg-acetaminophen 325 mg tablet 1 tab PO Q6H PRN 06/23/18 lidocaine 5 % topical cream 1 applic TOPICAL TID PRN 06/23/18 metoprolol tartrate 25 mg tablet 25 mg PO BID 06/23/18 olanzapine 10 mg tablet 10 mg PO QHS tab 06/23/18 pantoprazole 40 mg tablet,delayed release 40 mg PO QDAY 06/23/18 polyethylene glycol 3350 17 gram/dose oral powder 17 g PO QDAY PRN g 06/23/18 prednisone 5 mg tablet 2.5 mg PO QDAY 06/23/18 sennosides 8.6 mg-docusate sodium 50 mg tablet 2 tab PO QHS 06/23/18 febuxostat 40 mg tablet 40 mg PO QDAY 08/14/18 gabapentin 300 mg capsule 300 mg PO BID cap 08/14/18 tamsulosin 0.4 mg capsule 0.4 mg PO QDAY 08/14/18 benztropine 1 mg tablet 1 mg PO QHS tab 09/25/18 ferrous gluconate 324 mg (38 mg iron) tablet 324 mg PO QDAY tab 09/25/18 nystatin 100,000 unit/gram topical ointment 1 applic TOPICAL BID PRN 09/25/18 tissue resp fact-shark ash oil rectal ointment 1 ea IN TID PRN g 09/25/18 Furosemide [Lasix] 20 mg PO BID #30 tab 11/26/18 rivaroxaban 10 mg tablet 10 mg PO QDAY 12/19/18 trimethoprim 100 mg tablet 100 mg PO QDAY tab 12/19/18 Amoxicill/Clav 875/125mg [Augmentin 875/125mg] 1 tab PO BID 12/23/18 - Patient Allergies Allergies/Adverse Reactions: Allergies Allergy/AdvReac Type Severity Reaction Status Date / Time acetaminophen [From Tylox] Allergy Mild ITCHING Verified 11/24/18 18:00 Opioids - Morphine Analogues Allergy Mild ITCHING Verified 11/24/18 18:00 oxycodone [From Tylox] Allergy Mild ITCHING Verified 11/24/18 18:00 Sulfa (Sulfonamide Allergy Mild ITCHING Verified 11/24/18 18:00 Antibiotics) hyoscyamine Allergy ITCHING Verified 11/24/18 18:00 [From Levsin with Phenobarbital] phenobarbital Allergy ITCHING Verified 11/24/18 18:00 [From Levsin with Phenobarbital] phenytoin [From Dilantin] Allergy Verified 12/19/18 11:41 Phenytoin 1 Allergy Unknown ITCHING Uncoded 11/24/18 18:00 Past Medical History - heen HEENT History: Denies History Cardiovascular History: Hypertension, CHF, Arrhythmia, DVTs Respiratory History: Shortness of Breath Gastrointestinal History: Denies History Genitourinary History: Recurrent UTI Endocrine History: Type 2 Diabetes (oral) Musculoskeletal History: Muscle Weakness, Limited ROM Neurological History: Seizures Blood Disorders: Anemia Additional Blood Disorders History: HX OF BLOOD CLOTS Psychiatric History: Depression History of Sexually Transmitted Diseases: No Cancer History: Denies History History of MDRO: No History of Other Communicable Diseases: No In the Past 12 Months, Have Used or Abuse Any Substance: None Previous Surgical History: Yes Type / Date of Surgery: RIGHT ROTATOR CUFF, BILATERAL HIP Significant Family History: No pertinent family hx Past Medical History Reviewed: Reviewed - No Changes ROS - Limitations ROS Limitations: No Limitations Constitution: REPORTS: Fever (The patient was unaware of fever however this was measured at the jail and on arrival here in the ER) Cardiovascular: DENIES: Chest Pain Respiratory: DENIES: Hurts To Breathe, Shortness Of Breath Neurological: DENIES: Headache Gastrointestinal: REPORTS: Abdominal Pain. DENIES: Vomitting, Diarrhea Musculoskeletal: REPORTS: Lower Extremity Swelling Genitourinary: REPORTS: Other (Indwelling Purcell catheter) Eyes: REPORTS: Denies Symptoms ENT: REPORTS: Denies Symptoms Skin: DENIES: Rash Abdominal/Flank Pain PE - General Appearance General Appearance: POSITIVE: Other (The patient is awake and answers questions however he does appear to be uncomfortable on arrival) - HEENT HEENT: POSITIVE: Head Inspection Nml, Eyes Inspection Nml, Pharynx Inspect. Nml, Other (Slightly pale) - Respiratory Respiratory: POSITIVE: No Respiratory Distress, Breath Sounds Normal - Cardiovascular Cardiovascular: POSITIVE: Regular Rate and Rhythm, Heart Sounds Normal - Abdomen Additional Abdominal Details: His abdomen is slightly distended, he does have tenderness in the epigastric region without guarding, some mild rebound tenderness - Skin Skin: POSITIVE: Intact, No Rash - Extremities Extremity: Normal ROM: (All Extremities), Normal Inspection: (All Extremities) - Neurological Neurological: POSITIVE: Oriented X3, set up mechanic Normal As Tested, Motor Normal, S ensation Normal Abdomen Progress - Results Reviewed by me Xrays/CTs/US Reviewed by me: Yes Discussed with Radiologist: Yes Radiology Findings: CT scan of the abdomen and pelvis show some perinephric stranding with no acute findings otherwise per radiologist. Lab Results Reviewed by Me: Yes CBC and BMP: 12/23/18 04:19 12/23/18 04:19 - Patient's Progress MDM / ED Course: On arrival the patient's temperature is 100.1. He is tachycardic with heart rate in the 1 teens. His blood pressure is 160 over 70s on arrival. An IV was established, blood cultures lactated venous blood gas were obtained with initial IV start. The patient did receive 1 L bolus of normal saline as well as Zofran 4 mg, fentanyl 25 g and Protonix 40 mg IV. He was also given Tylenol 1 g IV. The patient's pain did improve. He was a very difficult IV stick with poor vascular access. Would work reveals a normal white count with an elevated CRP at 5.7. His creatinine is 2.2 which is baseline for him. Potassium is 5.3 and he has had elevated potassiums in the past. Urinalysis reveals 30-50 WBCs and culture is pending. Hemoglobin is 8.5 with a baseline hemoglobin of around 9. CT of the abdomen and pelvis show some perinephric stranding with no other acute findings per radiologist. The patient was given 2 g of Rocephin for treatment of urinary tract infection. I did discuss current findings with the patient as well as with Dr. Taylor and he has agreed to admit the patient for further care. - Consult Counseled: POSITIVE: Patient, RE: Lab Results, RE: Radiology Results, RE: DX, RE: Need for F/U Patient Care Time - Estimated PCT Patient Care Time (In Minutes): 40 Vital Signs - VS Reviewed Vital Signs Reviewed: Yes Discharge Clinical Impression: Abdominal pain, Pyelonephritis, Hyperkalemia, Bilateral leg edema Anemia Qualifiers: Anemia type: iron deficiency Iron deficiency anemia type: chronic blood loss Qualified Code(s): D50.0 - Iron deficiency anemia secondary to blood loss (chronic) Discharge Disposition: Admit to Inpatient Condition: Fair Patient Problem(s) Reviewed: Yes Date Decision to Admit to Inpatient: 12/23/18 Time Decision to Admit to Inpatient: 22:00
[2018-12-22 20:02] LABS: BASOPHILS # (AUTO) 0.02 10*3/UL; BASOPHILS % (AUTO) 0.3 % (0-1); EOSINOPHILS # (AUTO) 0.09 10*3/UL; EOSINOPHILS % (AUTO) 1.5 % (0-8); Hematocrit [HCT] 27.6 % (42.0-52.0); Hemoglobin [HGB] 8.5 g/dL (14.0-18.0); LYMPHOCYTES # (AUTO) 0.73 10*3/uL; MEAN CORPUSCULAR HEMOGLOBIN 33.7 PG (27-31); MEAN CORPUSCULAR HGB CONC 30.8 g/dL (33-37); MEAN CORPUSCULAR VOLUME 109.5 FL (80-90); MEAN PLATELET VOLUME 9.2 FL (7.4-12.2); MONOCYTES # (AUTO) 1.04 10*3/UL (0.3-0.8); MONOCYTES % (AUTO) 16.9 % (5-15); NEUTROPHILS # (AUTO) 4.27 10*3/UL; NEUTROPHILS % (AUTO) 69.2 % (50-80); RED BLOOD COUNT 2.52 10^6/uL (4.70-6.10)
[2018-12-22 20:09] LABS: VENOUS PH 7.37 (7.32-7.42)
[2018-12-22 20:17] LABS: BUN/CREATININE RATIO 18.18 (6-20)
[2018-12-22 20:19] LABS: PLATELET MORPHOLOGY COMMENT NORMAL MORPHOLOGY (NORM); RBC MORPHOLOGY COMMENT NORMAL MORPHOLOGY (NORM); WBC MORPHOLOGY COMMENT NORMAL MORPHOLOGY (NORM)
[2018-12-22 20:51] LABS: BILIRUBIN,URINE NEGATIVE (NEG); CLARITY,URINE CLOUDY (CLEAR); COLOR,URINE YELLOW (Y); GLUCOSE, URINE (UA) NEGATIVE (NEG); OCCULT BLOOD,URINE MODERATE (NEG); PH,URINE 8.5 (5.0-8.5); PROTEIN,URINE 100 mg/dl (NEG)
[2018-12-22 20:53] LABS: URINE SAMPLE TYPE CATH SPECIMEN
[2018-12-22 20:57] LABS: BACTERIA,URINE MANY; RBC,URINE 35-40 /hpf; WBC,URINE 45-50
--- NOTE | 2018-12-22 21:42 | DI ---
History: ITS.REASON Abdominal Pain Physician Notes: Tech Comments: Exam: CT ABDOMEN + PELVIS W/WO Contrast Comparison: 12/20/2018 FINDINGS: Lung bases are not significantly changed in appearance with areas of atelectasis and right middle lobe scarring, possibly areas of pneumonitis again noted. Coronary calcification or stents. Status post cholecystectomy. No renal stones or hydronephrosis. Perinephric stranding, edema is not significantly changed. A couple of likely right renal cysts again seen. Other abdominal solid organs and abdominal aorta appear within limits on noncontrast imaging. Inferior vena cava filter again seen. No bowel dilation or free air. [place] artifact from bilateral hip replacements significantly limits the pelvis evaluation. Normal caliber appendix without secondary signs. Purcell within the bladder. Bilateral nonacute L5 spondylolysis. IMPRESSION: Lung bases are not significantly changed in appearance with areas of atelectasis and right middle lobe scarring, possibly areas of pneumonitis again noted. Coronary calcification or stents. Status post cholecystectomy. No renal stones or hydronephrosis. Perinephric stranding, edema is not significantly changed. A couple of likely right renal cysts again seen. Inferior vena cava filter again seen. [place] artifact from bilateral hip replacements significantly limits the pelvis evaluation.
[2018-12-22] MEDS ORDERED: cefTRIAXone Inj 2 GM in Sodium Chloride 0.9% 100 ML IV ONE (21:53)
[2018-12-22] MEDS ORDERED: NYSTATIN 15 GM OINTMENT TOPICAL PRN (22:45)
[2018-12-22] MEDS ORDERED: BENZTROPINE 1 MG TABLET PO SCH (22:45)
[2018-12-22] MEDS ORDERED: [UNRECOGNIZED DRUG - OTHER] PR PRN (22:45)
[2018-12-22] MEDS ORDERED: LIDOCAINE W/ SODIUM BICARB 0.5 ML SYR SUBD PRN (22:45)
[2018-12-22] MEDS ORDERED: DOCUSATE 100 MG CAPSULE PO PRN (22:45)
[2018-12-22] MEDS ORDERED: CALCIUM CARBONATE 500 MG (TUMS) CHEWABLE TABLET PO PRN (22:45)
[2018-12-22] MEDS ORDERED: HYDROcodone-APAP 5 MG -325 MG TABLET PO PRN (22:45)
[2018-12-22] MEDS ORDERED: ONDANSETRON 4 MG/2 ML VIAL IVP PRN (22:45)
[2018-12-22] MEDS ORDERED: ACETAMINOPHEN 325 MG TABLET PO PRN (22:45)
[2018-12-22] MEDS ORDERED: POLYETHYLENE GLYCOL 3350 17 GM POWDER PO PRN (22:45)
[2018-12-22] MEDS ORDERED: LIDOCAINE TOPICAL PRN (22:45)
--- NOTE | 2018-12-22 22:52 | PDOC ---
HPI - History of Present Illness Date of Service: 12/22/18 Time of Service: 22:46 Chief Complaint: Not feeling well History of Present Illness: This very pleasant 68-year-old male with a sorted past medical history including coronary artery disease, CABG, chronic kidney disease stage 3-4, iron deficiency, anemia, gouty arthropathy, bilateral hip replacements, amongst other medical issues, who presents from [facility] with a complaint of not feeling very well. He states that this all started after he ate 45 pieces of turkey and it just didn't taste right. He stopped eating the turkey and left mashed potatoes and drink iced tea and water and still did not feel very well. He asked the nurses aides for his nurse in the nurse's aide said they would get the nurse right away as the patient looked peaked and pale. The patient was mildly confused at that time, and was found to have a fever. He was sent to the emergency room for evaluation and he was febrile here and my discussion with emergency room physician. Patient has bilateral flank pain right greater than left, urine studies that were consistent with urinary tract infection and thus far no other source of infection. He has an indwelling Purcell catheter as well as on his prior hospital stay he adamantly refused removal of the Purcell catheter. He is on prostate medications. It is not known if he has any other history of obstructive uropathy but has been on trimethoprim for urinary tract infection prevention in the past. He is awaiting urologic consu ltation but has not had an appointment with the urologist for a more thorough evaluation at this point. There were no other exacerbating factors. In the emergency room it was noted that the patient had poor IV access 22-gauge IVs that would come and go in terms of reasonable placement, he had a systolic pressure dropped to the 100s after a couple doses of fentanyl as well, and had over 5 attempts at other IVs. Is not clear if some of his vital signs are in the setting of medications or if he is developing early sepsis. However, his lactic acid was elevated. He does complain of some abdominal pain and states that when he has had urine infections in the past he has similar abdominal pains . Past Medical History Medical History: 1. seizure disorder. 2. Chronic intermittent A. fib. 3. History of DVT. 4. chronic kidney disease stage III to stage IV. 5. Chronic pain syndrome. 6. History of C. difficile in the past. 7. Hypertension. 8. Gouty arthropathy. 9. History of IVC filter. 10. Anemia. 11. Recently chronic indwelling Purcell catheter. 12. Tremor of right upper extremity. 13. Coronary artery disease status post CABG. 14. History of traumatic brain injury Surgical History: 1. History of right knee surgery. 2. History of appendectomy. 3. History of shoulder surgery. 4. Bilateral hip replacements. 5. CABG Pertinent Family History: He states both of his parents were alcoholics Past Social History: Used to smoke, doesn't drink, currently reside at the residential, he said he used to live in [place]. Uses a walker to walk. . Has children that he describes as healthy. Tobacco Use: Former Smoker In the Past 12 Months, Have Used or Abuse Any of the Following Substance: None Alcohol Use: None Medication / Allergies Home Medications: Home Medications Medication Instructions Recorded Confirmed acetaminophen 325 mg tablet 650 mg PO Q6H PRN 06/23/18 12/19/18 divalproex 250 mg tablet,delayed 750 mg PO QDAY tab 06/23/18 12/19/18 release escitalopram 20 mg tablet 20 mg PO QDAY tab 06/23/18 12/19/18 famotidine 20 mg tablet 20 mg PO BID tab 06/23/18 12/19/18 finasteride 5 mg tablet 5 mg PO QDAY 06/23/18 12/19/18 hydrocodone 5 mg-acetaminophen 325 1 tab PO Q6H PRN 06/23/18 12/19/18 mg tablet lidocaine 5 % topical cream 1 applic TOPICAL TID PRN 06/23/18 12/19/18 metoprolol tartrate 25 mg tablet 25 mg PO BID 06/23/18 12/19/18 olanzapine 10 mg tablet 10 mg PO QHS tab 06/23/18 12/19/18 pantoprazole 40 mg tablet,delayed 40 mg PO QDAY 06/23/18 12/19/18 release polyethylene glycol 3350 17 17 g PO QDAY PRN g 06/23/18 12/19/18 gram/dose oral powder prednisone 5 mg tablet 2.5 mg PO QDAY 06/23/18 12/19/18 sennosides 8.6 mg-docusate sodium 2 tab PO QHS 06/23/18 12/19/18 50 mg tablet febuxostat 40 mg tablet 40 mg PO QDAY 08/14/18 12/19/18 gabapentin 300 mg capsule 300 mg PO BID cap 08/14/18 12/19/18 tamsulosin 0.4 mg capsule 0.4 mg PO QDAY 08/14/18 12/19/18 benztropine 1 mg tablet 1 mg PO QHS tab 09/25/18 12/19/18 ferrous gluconate 324 mg (38 mg 324 mg PO QDAY tab 09/25/18 12/19/18 iron) tablet nystatin 100,000 unit/gram topical 1 applic TOPICAL BID PRN 09/25/18 12/19/18 ointment tissue resp fact-shark ash oil 1 ea [place] TID PRN g 09/25/18 12/19/18 rectal ointment Furosemide [Lasix] 20 mg PO BID #30 tab 11/26/18 12/19/18 rivaroxaban 10 mg tablet 10 mg PO QDAY 12/19/18 12/19/18 trimethoprim 100 mg tablet 100 mg PO QDAY tab 12/19/18 12/19/18 Allergies/Adverse Reactions: Allergies Allergy/AdvReac Type Severity Reaction Status Date / Time acetaminophen [From Tylox] Allergy Mild ITCHING Verified 11/24/18 18:00 Opioids - Morphine Analogues Allergy Mild ITCHING Verified 11/24/18 18:00 oxycodone [From Tylox] Allergy Mild ITCHING Verified 11/24/18 18:00 Sulfa (Sulfonamide Allergy Mild ITCHING Verified 11/24/18 18:00 Antibiotics) hyoscyamine Allergy ITCHING Verified 11/24/18 18:00 [From Levsin with Phenobarbital] phenobarbital Allergy ITCHING Verified 11/24/18 18:00 [From Levsin with Phenobarbital] phenytoin [From Dilantin] Allergy Verified 12/19/18 11:41 Phenytoin 1 Allergy Unknown ITCHING Uncoded 11/24/18 18:00 Review of Systems - Constitutional Constitutional: REPORTS: General Health Poor, Fever / Chills, Malaise, Weakness - Respiratory Respiratory: REPORTS: Negative System Review - Cardiovascular Cardiovascular: REPORTS: Negative System Review - Gastrointestinal Gastrointestinal / Abdominal: REPORTS: Abdominal Pain (He describes this is related to his urine infection) - Genitourinary Genitourinary: REPORTS: Pain (Bilateral flank pain, right greater than left) - Musculoskeletal Musculoskeletal: REPORTS: Other (Multiple arthritic joints) - Neurological Neurologic: REPORTS: Other (History of seizure disorder but no recent seizure) Exam - Vitals Vital Signs: Vital Signs Height 6 ft Weight 253 lb Vital Signs - Last Taken Temperature 100.8 F H 12/22/18 20:46 Pulse Rate 78 12/22/18 23:00 Respiratory Rate 22 12/22/18 20:46 Blood Pressure 155/70 12/22/18 20:46 Pulse Ox 92 12/22/18 23:00 - General General Appearance: No Acute Distress, Cooperative, Obese - Head Head Exam: Normal Inspection, Normocephalic, Atraumatic - Eye Eye Exam: POSITIVE: No Scleral Icterus - ENT ENT Exam: POSITIVE: Mucous Membranes Dry - Neck Neck Exam: Normal Inspection, No Tenderness, No Lymphadenopathy, No Thyromegaly, JVP is not Raised - Respiratory Respiratory Exam: POSITIVE: Clear to Auscultation - Bilaterally, Breathing Non Labored, Decreased Breath Sounds (In the bases bilaterally) - Cardiovascular Cardiovascular Exam: POSITIVE: RRR, No Murmur, No Clicks, No Gallops, No Rubs, No JVD - GI/Abdominal GI/Abdominal Exam: POSITIVE: Normal Bowel Sounds, Non Tender, Non Distended, Soft - Rectal Rectal Exam: POSITIVE: Deferred - External Exam: POSITIVE: Deferred Exam: POSITIVE: Purcell Catheter in Place (Urine appears dark) - Extremities Extremities Exam: POSITIVE: No Clubbing Present, No Cyanosis Present, +3 Edema - Back Back Exam: POSITIVE: No CVA Tenderness - Neurological Neurological Exam: POSITIVE: Alert, Oriented x 3, No Facial Droop, Speech Intact / Clear, Moves All Extremities Equally - Integumentary Integumentary Exam: POSITIVE: Warm, Dry, Intact Results - Labs CBC and BMP: 12/22/18 19:42 12/22/18 19:42 Additional Lab Results: Laboratory Results 12/22/18 12/22/18 12/22/18 19:42 19:42 19:42 WBC 6.16 RBC 2.52 L Hgb 8.5 L Hct 27.6 L MCV 109.5 H MCH 33.7 H MCHC 30.8 L RDW Std Deviation 61.3 H RDW Coeff of [place] 15.8 H Plt Count 188 MPV 9.2 Immature Gran % (Auto) 0.2 Neut % (Auto) 69.2 Lymph % (Auto) 11.9 [place] % (Auto) 16.9 H Eos % (Auto) 1.5 Baso % (Auto) 0.3 Immature Gran # (Auto) 0.01 Neut # (Auto) 4.27 Lymph # (Auto) 0.73 [place] # (Auto) 1.04 H Eos # (Auto) 0.09 Baso # (Auto) 0.02 WBC Morphology Comment Normal morphology Plt Morphology Comment Normal morphology RBC Morph Comment Normal morphology VBG pH VBG pCO2 VBG HCO3 VBG Base Excess Sodium 138 Potassium 5.3 H Chloride 108 Carbon Dioxide 20 L Anion Gap 10 BUN 40 H Creatinine 2.2 H Estimated GFR 30 BUN/Creatinine Ratio 18.18 Glucose 179 H Calculated Osmolality 299.0 H Lactic Acid 2.2 H Calcium 9.0 Magnesium 2.1 Total Bilirubin 0.8 AST 25 ALT 10 L Alkaline Phosphatase 73 Troponin I C-Reactive Protein 5.7 H Total Protein 7.4 Albumin 4.0 Globulin 3.4 Albumin/Globulin Ratio 1.10 L Amylase 74 Lipase 47 Ur Collection Type Urine Color Urine Clarity Urine pH Ur Specific [place] Urine Protein Urine Glucose (UA) Urine Ketones Urine Occult Blood Urine Nitrate Urine Bilirubin Urine Urobilinogen Ur Leukocyte Esterase Urine RBC Urine WBC Ur Squamous Epith Cells Ur Renal Epithelial Cell Urine Crystals Urine Bacteria Urine Casts Urine Mucus Urine Trichomonas Urine Yeast Ur Culture Indicated? 12/22/18 12/22/18 12/22/18 19:42 20:00 20:51 WBC RBC Hgb Hct MCV MCH MCHC RDW Std Deviation RDW Coeff of [place] Plt Count MPV Immature Gran % (Auto) Neut % (Auto) Lymph % (Auto) [place] % (Auto) Eos % (Auto) Baso % (Auto) Immature Gran # (Auto) Neut # (Auto) Lymph # (Auto) [place] # (Auto) Eos # (Auto) Baso # (Auto) WBC Morphology Comment Plt Morphology Comment RBC Morph Comment VBG pH 7.37 VBG pCO2 38 L VBG HCO3 21 L VBG Base Excess -4 L Sodium Potassium Chloride Carbon Dioxide Anion Gap BUN Creatinine Estimated GFR BUN/Creatinine Ratio Glucose Calculated Osmolality Lactic Acid Calcium Magnesium Total Bilirubin AST ALT Alkaline Phosphatase Troponin I < 0.012 C-Reactive Protein Total Protein Albumin Globulin Albumin/Globulin Ratio Amylase Lipase Ur Collection Type Cath specimen Urine Color Yellow Urine Clarity Cloudy A Urine pH 8.5 Ur Specific [place] 1.015 Urine Protein 100 A Urine Glucose (UA) Negative Urine Ketones Negative Urine Occult Blood Moderate H Urine Nitrate Negative Urine Bilirubin Negative Urine Urobilinogen 4.0 Ur Leukocyte Esterase Large Urine RBC 35-40 Urine WBC 45-50 Ur Squamous Epith Cells None Ur Renal Epithelial Cell None Urine Crystals None Urine Bacteria Many H Urine Casts None Urine Mucus Rare Urine Trichomonas None Urine Yeast None Ur Culture Indicated? Culture set Assessment and Plan - Patient Problems (1) Catheter-associated urinary tract infection Current Visit: Yes Status: Acute Comment: Present on admission Code(s): T83.511A - Infection and inflammatory reaction due to indwelling urethral catheter, initial encounter; N39.0 - Urinary tract infection, site not specified Qualifiers: Indwelling urinary catheter type: indwelling urethral catheter Encounter type: initial encounter Qualified Code(s): T83.511A - Infection and inflammatory reaction due to indwelling urethral catheter, initial encounter; N39.0 - Urinary tract infection, site not specified (2) Coronary artery disease Current Visit: Yes Status: Acute Code(s): I25.10 - Atherosclerotic heart disease of [place] coronary artery without angina pectoris Qualifiers: Coronary Disease-Associated Artery/Lesion type: [place] artery [place] vs. transplanted heart: [place] heart Associated angina: without angina Qualified Code(s): I25.10 - Atherosclerotic heart disease of [place] coronary artery without angina pectoris (3) CKD (chronic kidney disease) stage 3, GFR 30-59 ml/min Current Visit: Yes Status: Chronic Code(s): N18.3 - Chronic kidney disease, stage 3 (moderate) (4) Hyperkalemia Current Visit: Yes Status: Acute Code(s): E87.5 - Hyperkalemia (5) Anemia Current Visit: Yes Status: Chronic Code(s): D64.9 - Anemia, unspecified Qualifiers: Anemia type: iron deficiency Iron deficiency anemia type: chronic blood loss Qualified Code(s): D50.0 - Iron deficiency anemia secondary to blood loss (chronic) (6) Paroxysmal A-fib Current Visit: Yes Status: Chronic Code(s): I48.0 - Paroxysmal atrial fibrillation (7) Seizure disorder Current Visit: Yes Status: Acute Code(s): G40.909 - Epilepsy, unspecified, not intractable, without status epilepticus (8) History of traumatic brain injury Current Visit: Yes Status: Acute Code(s): Z87.820 - Personal history of traumatic brain injury - Assessment / Plan Additional Assessment/Plan Details: Admit the patient. His IV access is very poor and I think he probably needs a central line. I discussed that with him and see the procedure note separately and unique of this visit. He has low blood pressures, need for IV fluids and antibiotics Rocephin 2 g IV every 24 hours. IV fluids be administered and I'll check labs in a.m. Stop trimethoprim. Try to eliminate some medications if possible. I might repeat an iron panel as he's been on iron therapy for 3 months now. If the iron panel is better hopefully we can just stop the by mouth iron. I notice he is on several constipation medications which could be a result of iron therapy. I might stop the benztropine but will evaluate and make this decision. Hospital stay. CODE STATUS is full code. The patient also has a POLST form that confirms this. We will exchange the Purcell catheter but given his significant peripheral edema, I may try to approach diuresis if possible and if his kidney function stays stable. May diurese with albumin and Lasix? I suspect overall, the patient has right sided congestive heart failure may even have left-sided congestive heart failure and he may benefit from an echocardiogram to further direct medical therapy. I will order it but the soonest we can get that study would be Tuesday. Discussed plan above patient and he agreed with the plan.
[2018-12-22] MEDS ORDERED: cefTRIAXone Inj 2 GM in Sodium Chloride 0.9% 100 ML IV SCH (23:00)
[2018-12-22] MEDS ORDERED: OLANZapine Tab 5 MG TAB PO SCH (23:15)
[2018-12-22] MEDS ORDERED: LIDOCAINE 2% 20 MG/ML - 20 ML VIAL ONE (23:41)
[2018-12-22] MEDS ORDERED: LIDOCAINE 5% TOPICAL PRN (23:54)
[2018-12-23] MEDS: Sodium Chloride 0.9% 1,000 ML PRIMARY IV SCH ×2 (00:12→09:11)
--- NOTE | 2018-12-23 00:23 | PROCEDURE1 ---
Procedure - - Date and Time of Service: 12/23/2018, 0020 Procedure Performed: Central Line : Non Tunneled Procedure Note: Procedure performed: Left Internal jugular central venous catheter placement Indication for procedure: This is a 68-year-old male with catheter associated urinary tract infection, present on admission, low systolic blood pressure 100, very poor IV access, multiple attempts at IV access without success, with risks discussed as possible arterial puncture, pneumothorax, and localized pain. Benefits for medication administration, blood draws, hemodynamic monitoring, and management of clinical condition. Description of procedure: The patient was prepped and draped in the usual fashion with a full body drape. Ultrasound guidance was used to identify the left internal jugular vein. The area was cleansed with chlorhexidine. Lidocaine was used for local anesthesia. Using an introducer needle attached to a 5 mL syringe, this was inserted and angled towards the ipsilateral nipple, with ultrasound guidance as well. There was a flash of venous blood as the internal jugular vein was cannulated via the introducer needle. I confirmed that the blood was not pulsatile. It was dark and venous. A guidewire was inserted through the needle into the internal jugular vein and the needle was removed over the wire. A 10 blade was then used to perform a small dermatotomy at the needle insertion site. The venous dilator was then placed over the guidewire using Seldinger technique, and then removed. Four port central venous catheter was then placed over the guidewire inserted into the internal jugular vein and the guidewire was removed. All ports were flushed with normal saline. All ports had draw back. The catheter was sutured into place, and the skin was cleansed with chlorhexidine and the catheter was dressed. A postprocedure x-ray showed tip of the central line at the cavoatrial junction, no pneumothorax. I personally reviewed the chest X-ray. Complications: No apparent complications at the time of the procedure Disposition: Patient remains as an inpatient for treatment of the above condition.
[2018-12-23] MEDS ORDERED: LIDOCAINE HCL 2 % 10 ML JELLY URO-JECT TOPICAL PRN (00:55)
--- NOTE | 2018-12-23 01:14 | DI ---
EXAM: XR Chest, 1 View CLINICAL HISTORY: line placement TECHNIQUE: Frontal view of the chest. COMPARISON: November 24, 2018. FINDINGS: The distal tip of the left-sided central venous catheter is in the cavoatrial junction. No radiographic evidence of pneumothorax. Cardiac silhouette is within normal limits. Central vascular congestion. Low lung volumes with mild bibasilar scarring and atelectasis. No focal consolidative process or pleural effusions. Postsurgical changes in the cervical spine. IMPRESSION: Distal tip of left-sided central venous catheter in the cavoatrial junction. No radiographic evidence of pneumothorax.
[2018-12-23] MEDS ORDERED: Acetaminophen 1000mg Inj 1,000 MG/100 ML VIAL IV PRN (04:27)
[2018-12-23 05:17] LABS: BASOPHILS # (AUTO) 0.01 10*3/UL; BASOPHILS % (AUTO) 0.2 % (0-1); EOSINOPHILS # (AUTO) 0.06 10*3/UL; EOSINOPHILS % (AUTO) 1.1 % (0-8); Hematocrit [HCT] 23.9 % (42.0-52.0); Hemoglobin [HGB] 7.2 g/dL (14.0-18.0); LYMPHOCYTES # (AUTO) 0.73 10*3/uL; MEAN CORPUSCULAR HGB CONC 30.1 g/dL (33-37); MEAN CORPUSCULAR VOLUME 109.6 FL (80-90); MEAN PLATELET VOLUME 9.1 FL (7.4-12.2); MONOCYTES # (AUTO) 0.88 10*3/UL (0.3-0.8); MONOCYTES % (AUTO) 15.4 % (5-15); NEUTROPHILS # (AUTO) 4.02 10*3/UL; NEUTROPHILS % (AUTO) 70.3 % (50-80); RED BLOOD COUNT 2.18 10^6/uL (4.70-6.10)
[2018-12-23 05:29] LABS: BUN/CREATININE RATIO 16.52 (6-20)
[2018-12-23 05:36] LABS: PLATELET MORPHOLOGY COMMENT NORMAL MORPHOLOGY (NORM); RBC MORPHOLOGY COMMENT NORMAL MORPHOLOGY (NORM); WBC MORPHOLOGY COMMENT NORMAL MORPHOLOGY (NORM)
[2018-12-23] MEDS ORDERED: FUROSEMIDE 10 MG/1 ML - 2 ML VIAL IVP ONE (06:09)
[2018-12-23] MEDS ORDERED: Sodium Chloride 0.9% 500 ML PRIMARY IV ONE (06:09)
[2018-12-23] MEDS ORDERED: ACETAMINOPHEN 325 MG TABLET PO ONE (06:09)
[2018-12-23 08:28] VITALS: BP 108/42; RESP 20; TEMP 100.6
[2018-12-23] MEDS ORDERED: FUROSEMIDE 20 MG TABLET PO SCH (09:00)
[2018-12-23] MEDS ORDERED: predniSONE 5 MG TABLET PO SCH (09:00)
[2018-12-23] MEDS ORDERED: FERROUS GLUCONATE 324 MG TABLET PO SCH (09:00)
[2018-12-23] MEDS ORDERED: Rivaroxaban Tab 10 MG TAB PO SCH (09:00)
[2018-12-23] MEDS ORDERED: ESCITALOPRAM 10 MG TABLET PO SCH (09:00)
[2018-12-23] MEDS ORDERED: Metoprolol TARTRATE Tab 25 MG TAB PO SCH (09:00)
[2018-12-23] MEDS ORDERED: GABAPENTIN 300 MG CAPSULE PO SCH (09:00)
[2018-12-23] MEDS ORDERED: DIVALPROEX SODIUM 250 MG TABLET PO SCH (09:00)
[2018-12-23] MEDS ORDERED: PANTOPRAZOLE 40 MG TABLET PO SCH (09:00)
[2018-12-23] MEDS ORDERED: FINASTERIDE 5 MG TABLET PO SCH (09:00)
[2018-12-23] MEDS ORDERED: TAMSULOSIN 0.4 MG CAPSULE PO SCH (09:00)
--- NOTE | 2018-12-23 10:36 | DCSUMMARY ---
Hospitalization Summary Admit Date: 12/22/2018 Discharge Date: 12/23/18 Primary Diagnosis:: sepsis, Escherichia coli versus Enterobacter, ? both Hospital Course: Very pleasant 68-year-old male with multiple medical issues (please see history and physical exam for details on all of those), [facility] with complaints of just not feeling well. He reported that he didn't feel well after eating his dinner and the nurses aides felt that he just didn't look well and looked peaked. He got the nurse at the [facility] to look at him and they've found that he was febrile and sent him in for evaluation in the emergency room. He was found to have a probable urinary tract infection. Abdominal and pelvic CT scan was specific for possible paranephric stenting on the kidneys bilaterally, although this was a noncontrast study. We admitted the patient, placed him on Rocephin and IV fluids, and by the morning, he has progressively become more hypotensive, altered, and is in obvious sepsis. His white blood cell count is normal. However his blood cultures came back positive for Escherichia coli and Enterobacter initially. Final IDs and sensitivities are still pending. The patient needs higher level of care and I spoke with the emergency room physician at [facility] who agreed to accept his care and I also spoke to infectious disease specialist there who recommended that we change patient from Rocephin to Invanz and give a dose prior to discharge. I am giving the patient on normal saline bolus and we do have blood on order as he has multiple antibodies and he was found to have hemoglobin of 7.2 this morning. Early this morning, the patient did deny any chest pain or shortness of breath. His not had any cough. He has been more difficult to arouse as the day has gone on. We have his head of bed elevated to try and prevent aspiration. In addition he had such poor IV access yesterday that I placed a central line for continued IV access and therapy and treatment. He still states that he has abdominal pain. Did not respond to abdominal examination with pain. I tried to call the patient's ex- who the patient has left his contact information, but there was no answer at the provided phone number in the chart. Assessment and Plan: 1. As per discharge assessments noted 2. Disposition: Patient is discharged to [facility] 3. Condition on discharge, stable as to the best of our ability, but clinical condition could deteriorate based on sepsis. 4. Diet: We'll keep nothing by mouth for now 5. Activities: As per [facility] 6. Follow-Up: 1. He sees Dr. Trujillo at [facility] 7. Medications at the Time of Discharge: Active Medications Generic Name Dose Route Start Last Admin Trade Name Freq PRN Reason Stop Dose Admin Acetaminophen 650 mg 12/22/18 22:45 Tylenol PO Q6H PRN Pain or Fever Hydrocodone Bitart/Acetaminophen 1 tab 12/22/18 22:45 12/23/18 01:25 Arnett 5/325 Tab PO 1 tab Q6H PRN Administration Pain Benztropine Mesylate 1 mg 12/22/18 22:45 12/23/18 00:11 Cogentin PO 1 mg BEDTIME TAYA Administration Calcium Carbonate 1 - 2 tab 12/22/18 22:45 Tums PO Q6H PRN Heartburn Divalproex Sodium 750 mg 12/23/18 09:00 12/23/18 08:36 Depakote PO 750 mg DAILY TAYA Administration Docusate Sodium 100 mg 12/22/18 22:45 Colace PO BID PRN Constipation Escitalopram Oxalate 20 mg 12/23/18 09:00 12/23/18 08:36 Lexapro PO 20 mg DAILY TAYA Administration Furosemide 20 mg 12/23/18 09:00 12/23/18 08:36 Lasix PO 20 mg BID TAYA Administration Gabapentin 300 mg 12/23/18 09:00 12/23/18 08:36 Neurontin PO 300 mg BID TAYA Administration Ceftriaxone Sodium 2 gm/ 100 mls @ 200 mls/hr 12/22/18 23:00 12/22/18 23:20 Sodium Chloride IV Not Given Q24H TAYA Sodium Chloride 1,000 mls @ 125 mls/hr 12/22/18 22:45 12/23/18 09:11 Normal Saline PRIMARY IV 125 mls/hr .Q8H TAYA Administration Sodium Chloride 25 mls @ 200 mls/hr 12/22/18 22:45 Normal Saline 0.9% IV .Post Infusion PRN No Primary IV for Flush ONLY Acetaminophen 1,000 mg in 100 mls @ 400 mls/hr 12/23/18 04:27 12/23/18 04:33 Ofirmev 1000mg Inj IV 400 mls/hr ONCE PRN Administration Pain Sodium Chloride 500 mls @ 50 mls/hr 12/23/18 06:09 Normal Saline PRIMARY IV 12/23/18 16:08 .Q10H ONE Ertapenem 1 gm/ Sodium 100 mls @ 200 mls/hr 12/23/18 10:30 Chloride IV Q24H TAYA Lidocaine HCl 0.5 ml 12/22/18 22:45 Lidocaine Buffered Inj SUBD ONCE PRN IV Starts Lidocaine HCl 10 ml 12/23/18 00:55 Xylocaine Uro-Ject 2% TOPICAL ONCE PRN Discomfort catheter insertion Metoprolol Tartrate 25 mg 12/23/18 09:00 Lopressor Tab PO BID TAYA Non-Formulary Medication 40 mg 12/23/18 09:00 Febuxostat [Uloric] PO DAILY TAYA Non-Formulary Medication 1 ea 12/22/18 22:45 Skin Resp.Factor/Shark Elyssa.Oil [Sm Hemorrhoidal Ointment] HI TID PRN other Non-Formulary Drug ( 1 applic 12/22/18 23:54 Lidocaine 5% Cream) TOPICAL TID PRN Pain Nystatin 1 applic 12/22/18 22:45 Mycostatin Ointment TOPICAL BID PRN other Olanzapine 10 mg 12/22/18 23:15 12/23/18 00:11 Zyprexa Tab PO 10 mg BEDTIME TAYA Administration Ondansetron HCl 4 mg 12/22/18 22:45 Zofran Inj IVP Q4H PRN NAUSEA / VOMITING Pantoprazole Sodium 40 mg 12/23/18 09:00 12/23/18 08:36 Protonix PO 40 mg DAILY TAYA Administration Polyethylene Glycol 17 gm 12/22/18 22:45 Miralax Packet PO DAILY PRN Constipation Prednisone 2.5 mg 12/23/18 09:00 12/23/18 08:36 Deltasone Tab PO 2.5 mg DAILY TAYA Administration Rivaroxaban 10 mg 12/23/18 09:00 12/23/18 08:36 Xarelto PO 10 mg DAILY TAYA Administration Senna/Docusate Sodium 2 tab 12/23/18 21:00 Senokot-S Tablet PO BEDTIME TAYA Tamsulosin HCl 0.4 mg 12/23/18 09:00 12/23/18 08:36 Flomax PO 0.4 mg DAILY TAYA Administration 8. Time, care, counseling and coordination of care for this discharge is greater than 30 minutes. Exam - Vitals Vital Signs: Vital Signs Temperature 100.6 F Temperature Source Oral Pulse Rate [Pulse Oximeter] 84 Pulse Rate [left finger] 84 Pulse Rate 94 Respiratory Rate 20 Blood Pressure [Right Arm] 108/42 Blood Pressure [Left Arm] 155/70 Pulse Ox [left finger] 97 Pulse Ox 95 Oxygen Flow Rate [left finger] 2 Oxygen Flow Rate 2 Oxygen Delivery Method [left Nasal Cannula finger] Oxygen Delivery Method Nasal Cannula Height 6 ft Weight 253 lb - General General Appearance: Mild Distress, Obese - Eye Eye Exam: POSITIVE: No Scleral Icterus - ENT ENT Exam: POSITIVE: Mucous Membranes Moist - Neck Neck Exam: JVP is not Raised - Respiratory Respiratory Exam: POSITIVE: Breathing Non Labored, Decreased Breath Sounds (In the bases) - Cardiovascular Cardiovascular Exam: POSITIVE: RRR, No Murmur, No Clicks, No Gallops, No Rubs, No JVD - GI/Abdominal GI/Abdominal Exam: POSITIVE: Normal Bowel Sounds, Non Tender, Non Distended, Soft - Extremities Extremities Exam: POSITIVE: No Clubbing Present, No Cyanosis Present, +2 Edema - Neurological Neurological Exam: POSITIVE: No Facial Droop, Speech Intact / Clear (His speech was intact and clear when he was speaking and arousable earlier this morning.), Altered Data Peritnent Studies: Laboratory Results 12/22/18 12/22/18 12/22/18 19:42 19:42 19:42 WBC 6.16 RBC 2.52 L Hgb 8.5 L Hct 27.6 L MCV 109.5 H MCH 33.7 H MCHC 30.8 L RDW Std Deviation 61.3 H RDW Coeff of [place] 15.8 H Plt Count 188 MPV 9.2 Immature Gran % (Auto) 0.2 Neut % (Auto) 69.2 Lymph % (Auto) 11.9 Sunflower % (Auto) 16.9 H Eos % (Auto) 1.5 Baso % (Auto) 0.3 Immature Gran # (Auto) 0.01 Neut # (Auto) 4.27 Lymph # (Auto) 0.73 Sunflower # (Auto) 1.04 H Eos # (Auto) 0.09 Baso # (Auto) 0.02 WBC Morphology Comment Normal morphology Plt Morphology Comment Normal morphology RBC Morph Comment Normal morphology VBG pH VBG pCO2 VBG HCO3 VBG Base Excess Sodium 138 Potassium 5.3 H Chloride 108 Carbon Dioxide 20 L Anion Gap 10 BUN 40 H Creatinine 2.2 H Estimated GFR 30 BUN/Creatinine Ratio 18.18 Glucose 179 H Calculated Osmolality 299.0 H Lactic Acid 2.2 H Calcium 9.0 Magnesium 2.1 Total Bilirubin 0.8 AST 25 ALT 10 L Alkaline Phosphatase 73 Troponin I C-Reactive Protein 5.7 H Total Protein 7.4 Albumin 4.0 Globulin 3.4 Albumin/Globulin Ratio 1.10 L Amylase 74 Lipase 47 Ur Collection Type Urine Color Urine Clarity Urine pH Ur Specific [place] Urine Protein Urine Glucose (UA) Urine Ketones Urine Occult Blood Urine Nitrate Urine Bilirubin Urine Urobilinogen Ur Leukocyte Esterase Urine RBC Urine WBC Ur Squamous Epith Cells Ur Renal Epithelial Cell Urine Crystals Urine Bacteria Urine Casts Urine Mucus Urine Trichomonas Urine Yeast Ur Culture Indicated? Blood Type Antibody Screen Antibody Identification Crossmatch 12/22/18 12/22/18 12/22/18 19:42 20:00 20:51 WBC RBC Hgb Hct MCV MCH MCHC RDW Std Deviation RDW Coeff of [place] Plt Count MPV Immature Gran % (Auto) Neut % (Auto) Lymph % (Auto) Sunflower % (Auto) Eos % (Auto) Baso % (Auto) Immature Gran # (Auto) Neut # (Auto) Lymph # (Auto) Sunflower # (Auto) Eos # (Auto) Baso # (Auto) WBC Morphology Comment Plt Morphology Comment RBC Morph Comment VBG pH 7.37 VBG pCO2 38 L VBG HCO3 21 L VBG Base Excess -4 L Sodium Potassium Chloride Carbon Dioxide Anion Gap BUN Creatinine Estimated GFR BUN/Creatinine Ratio Glucose Calculated Osmolality Lactic Acid Calcium Magnesium Total Bilirubin AST ALT Alkaline Phosphatase Troponin I < 0.012 C-Reactive Protein Total Protein Albumin Globulin Albumin/Globulin Ratio Amylase Lipase Ur Collection Type Cath specimen Urine Color Yellow Urine Clarity Cloudy A Urine pH 8.5 Ur Specific [place] 1.015 Urine Protein 100 A Urine Glucose (UA) Negative Urine Ketones Negative Urine Occult Blood Moderate H Urine Nitrate Negative Urine Bilirubin Negative Urine Urobilinogen 4.0 Ur Leukocyte Esterase Large Urine RBC 35-40 Urine WBC 45-50 Ur Squamous Epith Cells None Ur Renal Epithelial Cell None Urine Crystals None Urine Bacteria Many H Urine Casts None Urine Mucus Rare Urine Trichomonas None Urine Yeast None Ur Culture Indicated? Culture set Blood Type Antibody Screen Antibody Identification Crossmatch 12/23/18 12/23/18 12/23/18 04:19 04:19 06:35 WBC 5.71 RBC 2.18 L Hgb 7.2 L Hct 23.9 L MCV 109.6 H MCH 33.0 H MCHC 30.1 L RDW Std Deviation 61.7 H RDW Coeff of [place] 16.0 H Plt Count 168 MPV 9.1 Immature Gran % (Auto) 0.2 Neut % (Auto) 70.3 Lymph % (Auto) 12.8 Sunflower % (Auto) 15.4 H Eos % (Auto) 1.1 Baso % (Auto) 0.2 Immature Gran # (Auto) 0.01 Neut # (Auto) 4.02 Lymph # (Auto) 0.73 Sunflower # (Auto) 0.88 H Eos # (Auto) 0.06 Baso # (Auto) 0.01 WBC Morphology Comment Normal morphology Plt Morphology Comment Normal morphology RBC Morph Comment Normal morphology VBG pH VBG pCO2 VBG HCO3 VBG Base Excess Sodium 140 Potassium 5.6 H Chloride 110 Carbon Dioxide 23 Anion Gap 7 BUN 38 H Creatinine 2.3 H Estimated GFR 28 BUN/Creatinine Ratio 16.52 Glucose 121 H Calculated Osmolality 299.0 H Lactic Acid Calcium 8.4 L Magnesium Total Bilirubin AST ALT Alkaline Phosphatase Troponin I C-Reactive Protein Total Protein Albumin Globulin Albumin/Globulin Ratio Amylase Lipase Ur Collection Type Urine Color Urine Clarity Urine pH Ur Specific [place] Urine Protein Urine Glucose (UA) Urine Ketones Urine Occult Blood Urine Nitrate Urine Bilirubin Urine Urobilinogen Ur Leukocyte Esterase Urine RBC Urine WBC Ur Squamous Epith Cells Ur Renal Epithelial Cell Urine Crystals Urine Bacteria Urine Casts Urine Mucus Urine Trichomonas Urine Yeast Ur Culture Indicated? Blood Type A POSITIVE Antibody Screen Positive Antibody Identification Cancelled Crossmatch See Detail Blood cultures positive thus far for Enterobacter and for Escherichia coli Patient Problems - Patient Problem List (1) Sepsis Current Visit: Yes Status: Acute Code(s): A41.9 - Sepsis, unspecified organism Qualifiers: Sepsis type: Escherichia coli Qualified Code(s): A41.51 - Sepsis due to Escherichia coli [E. coli] Category: Medical (2) Bacteremia, escherichia coli Current Visit: Yes Status: Acute Code(s): R78.81 - Bacteremia Category: Medical (3) Bacteremia due to Enterobacter species Current Visit: Yes Status: Acute Code(s): R78.81 - Bacteremia; B96.89 - Other specified bacterial agents as the cause of diseases classified elsewhere Category: Medical (4) Catheter-associated urinary tract infection Current Visit: Yes Status: Acute Code(s): T83.511A - Infection and inflammatory reaction due to indwelling urethral catheter, initial encounter; N39.0 - Urinary tract infection, site not specified Qualifiers: Indwelling urinary catheter type: indwelling urethral catheter Encounter type: initial encounter Qualified Code(s): T83.511A - Infection and inflammatory reaction due to indwelling urethral catheter, initial encounter; N39.0 - Urinary tract infection, site not specified Category: Medical (5) Coronary artery disease Current Visit: Yes Status: Acute Code(s): I25.10 - Atherosclerotic heart disease of [place] coronary artery without angina pectoris Qualifiers: Coronary Disease-Associated Artery/Lesion type: [place] artery [place] vs. transplanted heart: [place] heart Associated angina: without angina Qualified Code(s): I25.10 - Atherosclerotic heart disease of [place] coronary artery without angina pectoris Category: Medical (6) CKD (chronic kidney disease) stage 3, GFR 30-59 ml/min Current Visit: Yes Status: Chronic Comment: 11/26/2018 GFR 32. Cr 2.1 Code(s): N18.3 - Chronic kidney disease, stage 3 (moderate) Category: Medical (7) Hyperkalemia Current Visit: Yes Status: Acute Comment: 11/26/2018 K+ 5.1. Code(s): E87.5 - Hyperkalemia Category: Medical (8) Anemia Current Visit: Yes Status: Chronic Comment: Hgb 9.1 Hct 30 (11/26/2018) Code(s): D64.9 - Anemia, unspecified Qualifiers: Anemia type: iron deficiency Iron deficiency anemia type: chronic blood loss Qualified Code(s): D50.0 - Iron deficiency anemia secondary to blood loss (chronic) Category: Medical (9) Paroxysmal A-fib Current Visit: Yes Status: Chronic Code(s): I48.0 - Paroxysmal atrial fibrillation Category: Medical (10) Seizure disorder Current Visit: Yes Status: Acute Code(s): G40.909 - Epilepsy, unspecified, not intractable, without status epilepticus Category: Medical (11) History of traumatic brain injury Current Visit: Yes Status: Acute Code(s): Z87.820 - Personal history of traumatic brain injury Category: Medical (12) Sepsis associated hypotension Current Visit: Yes Status: Acute Code(s): A41.9 - Sepsis, unspecified organism; I95.9 - Hypotension, unspecified Category: Medical
[2018-12-23] MEDS ORDERED: ERTAPENEM 1 GM VIAL ONE (10:40)
[2018-12-23] MEDS ORDERED: Sodium Chloride 0.9% 100 ML IV ONE (10:41)
[2018-12-23] MEDS ORDERED: Ertapenem Inj 1 GM in Sodium Chloride 0.9% 100 ML IV SCH (11:00)
[2018-12-23 11:02] LABS: VENOUS PH 7.46 (7.32-7.42)
[2018-12-23 11:06] VITALS: O2SAT 95
--- NOTE | 2018-12-23 16:11 | EKG ---
[address] [address] Measurements Intervals [place] Rate: 89 P: 46 NM: 182 QRS: 36 QRSD: 88 T: 45 QT: 338 QTc: 384 Interpretive Statements SINUS RHYTHM WITH OCCASIONAL SUPRAVENTRICULAR PREMATURE COMPLEXES Compared to ECG 11/24/2018 17:48:00 No significant change Electronically Signed On 12-25-18 13:56:40 MDT by Aaron Carlos [email or web address]
[2018-12-23] MEDS ORDERED: Senna/Docusate Tab 1 TAB TAB PO SCH (21:00)
== END 2018-12-23 12:12 | disposition short-term general hospital (02) | DRG 640 ==
LOC: ER 18:57 → MED/SURG 22:13
PROVIDERS: ADMIT Family Medicine; ATTEND Family Medicine